=== PATIENT | female | born 1975 | race African-American/Black ===

== ENCOUNTER 2018-10-06 02:52 | Emergency (ER) | payer BC, SELFPAY ==
[2018-10-06] MEDS ORDERED: FENTANYL CITR 100 MCG/2 ML ONE ×2 (03:33→06:25)
[2018-10-06 03:45] LABS: Absolute Lymphocytes (CBC) 1.7 K/uL (0.7-4.9); Basophils % 0.3 % (0-1.3); Hematocrit 38.6 % (36.0-45.0); Lymphocytes % 16.4 % (15.3-44.8); MPV 8.9 fL (7.6-11.3); RBC Red Blood Cell Count 4.62 M/uL (3.86-4.86)
[2018-10-06 03:55] LABS: Protime INR 1.03
[2018-10-06 04:07] LABS: ALT/SGPT 22 U/L (12-78); AST/SGOT 14 U/L (15-37); Albumin 3.7 g/dL (3.4-5.0); Alkaline Phosphatase 119 U/L (45-117); BUN Blood Urea Nitrogen 14 mg/dL (7-18); Bicarbonate 26 mmol/L (21-32); Bilirubin Direct 0.2 mg/dL (0-0.2); Glucose Level 94 mg/dL (74-106); Magnesium 2.1 mg/dL (1.8-2.4); NT PRO-BNP 90 pg/mL (<125); Potassium 3.7 mmol/L (3.5-5.1); Protein, Total 7.5 g/dL (6.4-8.2); Sodium Level 141 mmol/L (136-145); Troponin (Emerg Dept Use Only) < 0.02 ng/mL (0.0-0.045)
--- NOTE | 2018-10-06 05:16 | ER ---
Nurse's Notes [facility] Name: Stephanie Verma Age: 43 yrs Sex: Female : 1975 Arrival Date: 10/06/2018 Time: 02:57 Bed 6 Private MD: Diagnosis: Paraplegia, incomplete;Chest pain, unspecified Presentation: 10/06 03:00 Presenting complaint: Patient states: I have chest pain that started 45 minutes prior jb4 to arrival that radiates to the left neck and arm. I was most concerned about my left leg feeling heavy and numb. I was normal when I went to bed at 2200. 03:00 Transition of care: patient was not received from another setting of care. Onset of jb4 symptoms was October 06, 2018. Risk Assessment: Do you want to hurt yourself or someone else? Patient reports no desire to harm self or others. Initial Sepsis Screen: Does the patient meet any 2 criteria? No. Patient's initial sepsis screen is negative. Does the patient have a suspected source of infection? No. Patient's initial sepsis screen is negative. Care prior to arrival: None. 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 - Social history:: Smoking status: Patient/guardian denies using tobacco, Patient/guardian denies using alcohol. - Ebola Screening: : No symptoms or risks identified at this time. Screenin:13 Abuse screen: Denies threats or abuse. Nutritional screening: No deficits noted. jb4 Tuberculosis screening: No symptoms or risk factors identified. Fall Risk IV access (20 points). Gait- Impaired (20 pts.). Total Danielson Fall Scale indicates Low Risk Score (25-44 pts). Assessment: 03:00 General: Appears in no apparent distress. uncomfortable, Behavior is cooperative, jb4 anxious, Pt reports "a weird dull sensation" below the left knee. Is unable to hold up her left leg. sensation is impaired and lessened from the left knee to the bottom of the left foot.. 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 Neuro: Level of Consciousness is awake, alert, obeys commands, Oriented to person, place, time, situation, Weakness in left leg(s) foot/feet Speech is normal, Facial symmetry appears normal, Pupils are PERRLA, Numbness in left knee, left rajan, anterior aspect of left ankle and dorsum of left foot. Cardiovascular: Capillary refill < 3 seconds in bilateral toes Patient's skin is warm and dry. Pulses are 3+ in right dorsalis pedis artery and left dorsalis pedis artery Rhythm is sinus bradycardia. Respiratory: Airway is patent Respiratory effort is even, unlabored, Respiratory pattern is regular, symmetrical. GI: No deficits noted. No signs and/or symptoms were reported involving the gastrointestinal system. : No deficits noted. No signs and/or symptoms were reported regarding the genitourinary system. EENT: No deficits noted. No signs and/or symptoms were reported regarding the EENT system. Derm: Skin is intact, Skin is dry, Skin is normal, Skin temperature is warm No discoloration or coolness noted to the left leg. Musculoskeletal: Circulation, motion, and sensation intact. Range of motion: limited in left knee and left ankle. 04:18 Reassessment: Patient appears in no apparent distress at this time. Patient and/or jb4 family updated on plan of care and expected duration. Pain level reassessed. Patient is alert, oriented x 3, equal unlabored respirations, skin warm/dry/pink. Pt reports feeling more at ease and is able to move her left arm more easily with less pain. Still unable to move left leg. Left leg shows no resistance to gravity when lifted off the bed and immediately falls back down. Provider notified. 05:15 Reassessment: Patient appears in no apparent distress at this time. No changes from jb4 previously documented assessment. Patient and/or family updated on plan of care and expected duration. Pain level reassessed. Patient is alert, oriented x 3, equal unlabored respirations, skin warm/dry/pink. 05:51 Reassessment: Report called to ALBERT Yip at [facility]. jb4 06:05 Reassessment: Pt reports increase in chest pain, provider notified, see MAR for orders. jb4 06:27 Reassessment: Patient appears in no apparent distress at this time. Patient and/or jb4 family updated on plan of care and expected duration. Pain level reassessed. Patient is alert, oriented x 3, equal unlabored respirations, skin warm/dry/pink. Pt to CT. 07:17 Reassessment: pt is in CT at this time, unavailable for vs. tw2 07:24 Reassessment: Patient appears in no apparent distress at this time. Patient and/or tw2 family updated on plan of care and expected duration. Pain level reassessed. Patient is alert, oriented x 3, equal unlabored respirations, skin warm/dry/pink. pt back from CT at this time, pt states "im good" when asked how her pain was. 08:16 Reassessment: Patient appears in no apparent distress at this time. No changes from tw2 previously documented assessment. Patient and/or family updated on plan of care and expected duration. Pain level reassessed. Patient is alert, oriented x 3, equal unlabored respirations, skin warm/dry/pink. Vital Signs: 03:00 BP 160 / 93; Pulse 68; Resp 18; Temp 98.0(O); Pulse Ox 99% on R/A; Weight 112.49 kg jb4 (R); Height 5 ft. 5 in. (165.10 cm) (R); Pain 6/10; 03:35 BP 141 / 76; Pulse 61; Resp 18; Pulse Ox 100% on R/A; jb4 04:30 BP 142 / 87; Pulse 69; Resp 15; Pulse Ox 100% on R/A; jb4 05:29 BP 164 / 103; Pulse 70; Resp 15; Pulse Ox 100% on R/A; jb4 06:28 BP 151 / 89; Pulse 70; Resp 20; Pulse Ox 98% on R/A; jb4 07:24 BP 152 / 87; Pulse 56; Resp 16; Pulse Ox 100% on R/A; tw2 08:15 BP 156 / 82; Pulse 57; Resp 17; Pulse Ox 99% on R/A; tw2 03:00 Body Mass Index 41.27 (112.49 kg, 165.10 cm) jb4 ED Course: 02:57 Patient arrived in ED. ds1 02:57 Fortino Francis, RN is Primary Nurse. jb4 02:58 Everette Jimenez MD is Attending Physician. gs 03:00 Arm band placed on right wrist. EKG completed in triage. Results shown to MD. jb4 03:11 Triage completed. jb4 03:13 Patient has correct armband on for positive identification. Bed in low position. Call 4 light in reach. Side rails up X 1. color television console monitor on. Pulse ox on. NIBP on. 03:13 Patient maintains SpO2 saturation greater than 95% on room air. jb4 03:20 Initial lab(s) drawn, by me, sent to lab. Inserted saline lock: 20 gauge in right jb4 forearm, using aseptic technique. Blood collected. 03:39 X-ray completed. Portable x-ray completed in exam room. Patient tolerated procedure kw well. 03:43 XRAY Chest (1 view) In Process Unspecified. EDMS 04:47 Basic Metabolic Panel Sent. jb4 04:47 CBC with Diff Sent. jb4 04:47 LFT's Sent. jb4 04:47 Magnesium Sent. jb4 06:34 US Extremity Venous Unilateral Ltd In Process Unspecified. EDMS 06:39 CT Chest Wo Con In Process Unspecified. EDMS 06:43 CT completed. Patient tolerated procedure well. Patient moved to CT via stretcher. Patient taken to ultrasound. 07:02 Primary Nurse role handed off by Fortino Francis, ALBERT tw2 07:02 Sanna Mariee, ALBERT is Primary Nurse. tw2 08:16 No provider procedures requiring assistance completed. Patient transferred, IV remains tw2 in place. Administered Medications: 03:37 Drug: fentaNYL (PF) 50 mcg {Note: Rass score of 0, B/p prior to administration 141/76.} jb4 Route: IVP; Site: right forearm; 04:00 Follow up: Response: No adverse reaction; Pain is decreased; RASS: Alert and Calm (0) jb4 06:19 Drug: Zofran 4 mg Route: IVP; Site: right forearm; jb4 07:26 Follow up: Response: No adverse reaction tw2 06:26 Drug: fentaNYL (PF) 25 mcg {Note: Rass score prior to administration 0, b/p 151/89 jb4 prior to administration..} Route: IVP; Site: right forearm; 07:25 Follow up: Response: No adverse reaction; Pain is decreased; RASS: Alert and Calm (0) tw2 Outcome: 05:15 ER care complete, transfer ordered by . brad 08:16 Transferred by ground EMS to [facility]. tw2 08:16 Condition: stable 08:16 Instructed on the need for transfer. 08:17 Patient left the ED. tw2 Signatures: Dispatcher [employer] EDMS KrishBarber byrne Demi ds1 Ernestina Falcon Tara, RN RN tw2 Fortino Francis RN RN jb4 Everette Jimenez MD MD gs Corrections: (The following items were deleted from the chart) 04:20 04:18 Reassessment: Patient appears in no apparent distress at this time. Patient jb4 and/or family updated on plan of care and expected duration. Pain level reassessed. Patient is alert, oriented x 3, equal unlabored respirations, skin warm/dry/pink. Pt reports feeling more at ease and is able to move her left arm more easily with less pain. Still unable to move left leg. Left leg shows no resistance to gravity when lifted off the bed and immediately falls back down. jb4 04:37 03:00 Derm: Skin is intact, Skin is dry, Skin is normal, Skin temperature is warm jb4 jb4
--- NOTE | 2018-10-06 05:16 | EDPHYS ---
Physician Documentation [facility] Name: Stephanie Verma Age: 43 yrs Sex: Female : 1975 Arrival Date: 10/06/2018 Time: 02:57 Bed 6 Private MD: ED Physician Everette Jimenez HPI: 10/06 05:01 This 43 yrs old Black Female presents to ER via Wheelchair with complaints of Chest gs Pain. 05:01 The patient or guardian reports chest pain that is located primarily in the anterior gs chest wall. Onset: gradually. The pain does not radiate. Associated signs and symptoms: Pertinent negatives: diaphoresis, shortness of breath, syncope, vomiting. The chest pain is described as sharp. Duration: The patient or guardian reports a single episode, that is still ongoing. Modifying factors: the symptoms are aggravated by movement, twisting torso, LIFTING LEFT ARM. Severity of pain: At its worst the pain was severe in the emergency department the pain is unchanged. The patient has experienced similar episodes in the past, a few times. 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 - Social history:: Smoking status: Patient/guardian denies using tobacco, Patient/guardian denies using alcohol. - Ebola Screening: : No symptoms or risks identified at this time. ROS: 05:01 Neuro: Positive for weakness, LEFT LEG, SAYS PAIN FROM KNEE DOWN, LEG FEELS ASLEEP.. gs 05:01 All other systems are negative. Exam: 05:01 Head/Face: Normocephalic, atraumatic. Eyes: Pupils equal round and reactive to light, gs extra-ocular motions intact. Lids and lashes normal. Conjunctiva and sclera are non-icteric and not injected. Cornea within normal limits. Periorbital areas with no swelling, redness, or edema. ENT: Nares patent. No nasal discharge, no septal abnormalities noted. Tympanic membranes are normal and external auditory canals are clear. Oropharynx with no redness, swelling, or masses, exudates, or evidence of obstruction, uvula midline. Mucous membranes moist. 05:01 Constitutional: The patient appears alert, awake. 05:06 Neck: Trachea midline, no thyromegaly or masses palpated, and no cervical gs lymphadenopathy. Supple, full range of motion without nuchal rigidity, or vertebral point tenderness. No Meningismus. Chest/axilla: Normal chest wall appearance and motion. Nontender with no deformity. No lesions are appreciated. Cardiovascular: Regular rate and rhythm with a normal S1 and S2. No gallops, murmurs, or rubs. Normal PMI, no JVD. No pulse deficits. Respiratory: Lungs have equal breath sounds bilaterally, clear to auscultation and percussion. No rales, rhonchi or wheezes noted. No increased work of breathing, no retractions or nasal flaring. Abdomen/GI: Soft, non-tender, with normal bowel sounds. No distension or tympany. No guarding or rebound. No evidence of tenderness throughout. Back: No spinal tenderness. No costovertebral tenderness. Full range of motion. Skin: Warm, dry with normal turgor. Normal color with no rashes, no lesions, and no evidence of cellulitis. 05:06 Musculoskeletal/extremity: ROM: limited active range of motion, limited passive range of motion, in the left leg, limited active range of motion due to pain, limited passive range of motion due to pain, in the left arm, Pulses: are normal with no appreciated deficits, the left rajan and dorsum of left foot numbness, decreased sensation. 05:06 Neuro: Orientation: is normal, Mentation: is normal, Memory: is normal, Cranial nerves: CN II- XII are normal as tested, Cerebellar function: normal finger to nose testing, Motor: strength is 5/5 in the right arm, left arm and right leg, Strength is 1/5 in the left leg, Deep tendon reflexes are normal. 05:46 ECG was reviewed by the Attending Physician. Vital Signs: 03:00 BP 160 / 93; Pulse 68; Resp 18; Temp 98.0(O); Pulse Ox 99% on R/A; Weight 112.49 kg jb4 (R); Height 5 ft. 5 in. (165.10 cm) (R); Pain 6/10; 03:35 BP 141 / 76; Pulse 61; Resp 18; Pulse Ox 100% on R/A; jb4 04:30 BP 142 / 87; Pulse 69; Resp 15; Pulse Ox 100% on R/A; jb4 05:29 BP 164 / 103; Pulse 70; Resp 15; Pulse Ox 100% on R/A; jb4 06:28 BP 151 / 89; Pulse 70; Resp 20; Pulse Ox 98% on R/A; jb4 07:24 BP 152 / 87; Pulse 56; Resp 16; Pulse Ox 100% on R/A; tw2 08:15 BP 156 / 82; Pulse 57; Resp 17; Pulse Ox 99% on R/A; tw2 03:00 Body Mass Index 41.27 (112.49 kg, 165.10 cm) jb4 MDM: 03:16 Patient medically screened. 05:13 Differential diagnosis: coronary artery disease chest wall pain, DVT, HERNIATED DISC, gs MYELOPATHY. Data reviewed: vital signs, nurses notes, old medical records, lab test result(s), EKG, radiologic studies. ED course: WILL TRANSFER CV WORKUP NEGATIVE STILL CANNOT MOVE LEG. 05:16 Differential diagnosis:. 10/06 03:17 Order name: Basic Metabolic Panel 10/06 03:17 Order name: CBC with Diff 10/06 03:17 Order name: LFT's 10/06 03:17 Order name: Magnesium 10/06 03:17 Order name: NT PRO-BNP; Complete Time: 04:48 10/06 03:17 Order name: PT-INR; Complete Time: 04:48 10/06 03:17 Order name: Troponin (emerg Dept Use Only); Complete Time: 04:48 10/06 03:17 Order name: XRAY Chest (1 view) 10/06 03:21 Order name: Basic Metabolic Panel; Complete Time: 04:48 EDMS 10/06 03:21 Order name: CBC with Automated Diff; Complete Time: 04:48 EDMS 10/06 03:21 Order name: Liver (Hepatic) Function; Complete Time: 04:48 EDMS 10/06 03:21 Order name: Magnesium; Complete Time: 04:48 EDMS 10/06 05:05 Order name: US Extremity Venous Unilateral Ltd 10/06 06:03 Order name: Troponin (emerg Dept Use Only) 10/06 03:17 Order name: EKG; Complete Time: 03:22 10/06 03:17 Order name: Cardiac monitoring; Complete Time: 03:28 10/06 03:17 Order name: EKG - Nurse/Tech; Complete Time: 03:28 10/06 03:17 Order name: IV Saline Lock; Complete Time: 03:28 10/06 03:17 Order name: Labs collected and sent; Complete Time: 03:28 10/06 03:17 Order name: O2 Per Protocol; Complete Time: 03:28 10/06 03:17 Order name: O2 Sat Monitoring; Complete Time: 03:28 10/06 06:03 Order name: EKG - Nurse/Tech; Complete Time: 06:13 10/06 06:03 Order name: CT Chest Wo Con gs EC:46 Rate is 58 beats/min. Rhythm is regular. AR interval is normal. QRS interval is normal. gs No Q waves. T waves are Normal. No ST changes noted. Clinical impression: Normal ECG and Sinus bradycardia. Interpreted by me. Administered Medications: 03:37 Drug: fentaNYL (PF) 50 mcg {Note: Rass score of 0, B/p prior to administration 141/76.} jb4 Route: IVP; Site: right forearm; 04:00 Follow up: Response: No adverse reaction; Pain is decreased; RASS: Alert and Calm (0) jb4 06:19 Drug: Zofran 4 mg Route: IVP; Site: right forearm; jb4 07:26 Follow up: Response: No adverse reaction tw2 06:26 Drug: fentaNYL (PF) 25 mcg {Note: Rass score prior to administration 0, b/p 151/89 jb4 prior to administration..} Route: IVP; Site: right forearm; 07:25 Follow up: Response: No adverse reaction; Pain is decreased; RASS: Alert and Calm (0) tw2 Disposition: 10/06/18 05:[address] [facility]. Diagnosis are Paraplegia, incomplete, Chest pain, unspecified. - Reason for transfer: Higher level of care. - Accepting physician is AUGUSTIN. - Condition is Stable. - Problem is new. - Symptoms are unchanged. Signatures: Dispatcher [employer] EDLorraine Rodriguez, RN RN ak1 Sanna Mariee RN RN tw2 Fortino Francis, RN RN jb4 Everette Jimenez MD MD gs Corrections: (The following items were deleted from the chart) 05:15 05:15 10/06/2018 05:[address] [facility]. Diagnosis is gs Paraplegia, incomplete. Reason for transfer: Higher level of care. Accepting physician is [facility]. Condition is Stable. Problem is new. Symptoms are unchanged. 08:17 05:15 10/06/2018 05:[address] [facility]. Diagnosis is tw2 Paraplegia, incomplete; Chest pain, unspecified. Reason for transfer: Higher level of care. Accepting physician is [facility]. Condition is Stable. Problem is new. Symptoms are unchanged.
[2018-10-06] MEDS ORDERED: ONDANSETRON 4 MG/2 ML VIAL ONE (06:14)
--- NOTE | 2018-10-06 07:36 | EKG ---
Test Date: 2018-10-06 Test Time: 03:06:28 Summer Analyst: HARRIS MEASUREMENT RESULTS: Intervals: Rate: 58 VA: 168 QRSD: 92 QT: 426 QTc: 418 Secor: P: 51 VA: 168 QRS: 43 T: 36 INTERPRETIVE STATEMENTS: Sinus bradycardia Otherwise normal ECG Compared to ECG 05/01/2015 01:17:30 No significant changes Electronically Signed On 10-06-18 07:35:21 CDT by Felix Hale
--- NOTE | 2018-10-06 08:20 | RAD REPORT ---
EXAM DESCRIPTION: RAD - Chest Single View - 10/06/2018 3:40 am CLINICAL HISTORY: CHEST PAIN Chest pain. COMPARISON: CHEST SINGLE VIEW dated 04/30/2015; CHEST SINGLE VIEW dated 08/12/2014 FINDINGS: Portable technique limits examination quality. The lungs are grossly clear. The heart is upper limit of normal in size. No displaced fractures. IMPRESSION: Mildly prominent cardiac silhouette.
--- NOTE | 2018-10-06 08:33 | RAD REPORT ---
EXAM DESCRIPTION: CT - Thorax Wo Con CLINICAL HISTORY: Chest pain PAIN COMPARISON: CTANGIO CHEST FOR PE dated 05/01/2015 FINDINGS: The lungs are clear. No pleural thickening or pleural effusion. No pneumothorax. No axillary, mediastinal or hilar adenopathy. No concerning bony finding. Postsurgical changes are seen about the stomach. Cholecystectomy clips. All CT scans are performed using dose optimization technique as appropriate and may include automated exposure control or mA/KV adjustment according to patient size. IMPRESSION: No acute intrathoracic abnormality.
--- NOTE | 2018-10-06 08:34 | RAD REPORT ---
EXAM DESCRIPTION: US - Extremity Venous Uni Ltd - 10/06/2018 7:17 am CLINICAL HISTORY: PAIN Leg swelling and edema. COMPARISON: EXT VENOUS W COMPRESSION MATEUS dated 08/12/2014 FINDINGS: Left lower extremity venous system was interrogated with Doppler technique. Normal flow, c ompressibility and augmentation was noted. There is no DVT present. IMPRESSION: No evidence of left lower extremity deep venous thrombosis.
--- NOTE | 2018-10-06 10:40 | EKG ---
Test Date: 2018-10-06 Test Time: 06:11:57 Yacht Hand: JOE MEASUREMENT RESULTS: Intervals: Rate: 62 OR: 186 QRSD: 92 QT: 442 QTc: 448 [place]: P: 36 OR: 186 QRS: 58 T: 34 INTERPRETIVE STATEMENTS: Normal sinus rhythm Normal ECG Compared to ECG 10/06/2018 03:06:28 Sinus bradycardia no longer present Electronically Signed On 10-06-18 10:39:24 CDT by Felix Hale
== END 2018-10-06 08:17 | disposition short-term general hospital (02) ==
LOC: ER 02:52
DX: G82.22 Paraplegia, incomplete (principal); R07.9 Chest pain, unspecified; Z91.041 Radiographic dye allergy status; Z86.718 Personal history of other venous thrombosis and embolism
CPT/HCPCS: 36415; 71045; 71250; 80048; 80076; 83735; 83880; 84484; 85025; 85610; 93005; 93971; 96374; 96375; 99285; J2405; J3010

== ENCOUNTER 2019-12-04 17:42 | Emergency (ER) | payer OTHER, SELFPAY ==
--- OUTSIDE RECORDS SUMMARY | 2019-12-04 17:44 | XMS REPORT | Clinical Summary ---
:1975 Author Organization [facility] [employer] [facility] Address [address] [place] [address] Care Team Providers Name Role Phone Donald Primary Care Provider Allergies Active Allergy Reactions Severity Noted Date Comments Iodine And Iodide Containing Hives 10/07/2018 Patients if she is pre Products medicated she c an tolerate iodine injectio ns Medications Medication Sig Dispensed Refills Start Date End Date Status aspirin 81 MG EC Take 1 tablet 30 tablet 3 10/10/2018 10/10/19 20 tablet (81 mg total) by mouth daily. pantoprazole Take 1 tablet 30 tablet 11 10/09/2018 10/09/2019 E xpired (PROTONIX) 20 MG (20 mg total) tablet by mouth daily. Active Problems Problem Noted Date Weakness 10/07/2018 Chest pain 10/06/2018 Weakness of left lower extremity 10/06/2018 Social History Tobacco Use Types Packs/Day Years Used Date Never Smoker Smokeless Tobacco: Never Used Alcohol Use Drinks/Week oz/Week Comments No Alcohol Habits Answer Date Recorded How often do you have a drink containing alcohol? Never 10/06/2018 How many drinks containing alcohol do you have on a typical Not asked day when you are drinking? How often do you have six or more drinks on one occasion? No t asked Sex Assigned at Date Recorded Not on file Job Start Date Occupation Industry Not on file Not on file Not on file Travel History Travel Start Travel End No recent travel history available. Last Filed Vital Signs Not on file Plan of Treatment Not on file Results Not on fileafter 12/03/2018 Advance Directives For more information, please contact:[facility] [place], [place] [phone] Code Status Date Activated Date Inactivated Comments Full Code 10/06/2018 10:00 AM 10/10/2018 12:04 AM This code status was determined by: Patient Name Relationship Healthcare Agent Relationship Ph one Low Elder Significant Other First alternate healthcare ent [phone]
--- OUTSIDE RECORDS SUMMARY | 2019-12-04 17:45 | XMS REPORT | Continuity of Care Document ---
:1975 Author Organization [facility] Ivel Information [place] Care Team Providers Name Role Phone [facility] Kai Information Exchange Unavailable Un available Problems Problem Status Onset Classification Date Comments Sourc e Date Reported OTHER Active 08/26/19 [place] [id number] [place] Other chest pain 08/23/19 08/25/2017 [place] [id number] [place] CHEST PAIN Active 08/23/19 [place] [id number] [place],[facility] Laparoscopic Active 09/29/19 Problem 08/29/2017 cholecystectomy 11 [facility], with [facility] cholangiography [facility] (procedure) Esophagogastrostom Active 02/25/19 Problem 08/29/2017 y, antesternal or 04 [place], antethoracic Memoria l (procedure) [facility] Multiple myeloma 08/29/2017 [place] not having achieved remission Essential 08/29/2017 [place] (primary) hypertension Neoplasm related 08/29/2017 [place] pain (acute) (chronic) Abdominal pain Active Problem 08/29/2017 (finding) [place],M H [facility] CHEST PAIN, Active [facility] UNSPECIFIED [place] OTHER SPECIFIED Active Tonio rial DISORDERS OF WHITE H ermann BLOOD OTHER FORMS OF Active Memor ial STOMATITIS Ivel OTHER SPECIFIED Active Tonio rial ABNORMAL Kai IMMUNOLOGICAL F MULTIPLE MYELOMA Active Mem orial NOT HAVING Kai ACHIEVED REM ESSENTIAL Active [facility] (PRIMARY) Kai HYPERTENSION NEOPLASM RELATED Active Mem orial PAIN (ACUTE) [place] (CHRONIC) Medications Medication Details Route Status Patient Ordering Order Source Instructions Provider Date atorvastatin Notes: (Same Inactive As: Lipitor) 2017 [place] Acetaminophen 1 - 2 tab, PO, No Longer H 300 MG / Q4H, PRN Pain, Active 2017 [place] Codeine X 2 day, # 20 Phosphate 30 MG tab, 0 Oral Tablet Refill(s) [Tylenol with Codeine #3] Aspirin Notes: Do not Inactive crush or chew. 2017 [place] (Same As: Ecotrin) Enoxaparin Notes: (Same No Longer as: Lovenox) Active 2017 [place] Acetaminophen Notes: Do not No Longer exceed 4 Active 2017 [place] gm/day. (Same as: Tylenol) Morphine Notes: No Longer Preservative Active 2017 [place] free. (Same as: Morphine Sulfate-PF) Ondansetron Notes: (Same No Longer as: Zofran) Active 2017 [place] MEDICATION WASTE Product Size: 4 mg Product Wasted: ___ mg Naproxen 500 MG 500 mg = 1 Active Oral Tablet tab, PO, BID, 2017 Mem[place] al [Naprosyn] PRN for pain, [place] X 7 day, # 14 tab, 0 Refill(s) ibuprofen 800 800 mg = 1 Inactive mg oral tablet tab, PO, Q8H, 2017 Mem orial PRN Pain, Take [place] with food, X 5 day, # 15 tab, 0 Refill(s) Benadryl 50 mg, Route: Inactive IVP, ONCE, 2017 [facility] Dosing Weight [facility] 95.455, kg, Priority: STAT, Start date: 08/22/17 12:59:00 CDT, Stop date: 08/22/17 12:59:00 CDT GI cocktail 30 mL, Route: Inactive PO, Dosing 2017 [facility] Weight 95.455, [place] kg, ONCE, STAT, Start date: 08/22/17 11:24:00 CDT, Stop date: 08/22/17 11:24:00 CDT Ketorolac 4 days Inactive MEDICATION 2017 [facility] WASTE [facility] Product Size: 30 mg Product Wasted: ___ mg Saline Flush Notes: (Same Inactive 0.9% as: BD 2017 [facility] Posiflush) [facility] Allergies, Adverse Reactions, Alerts Substance Category Reaction Severity Reaction Status Date Comments S ource type Reported iodine Assertion Drug Active allergy [place] Immunizations No Data Provided for This Section Results Order Name Results Value Reference Date Interpretation Comments Latisha rce Range CARDIAC Troponin-I <0.02 0.00 - 08/26 ENZYMES 0.40 /2017 [place] CARDIAC Total CK 73 12 - 191 08/26 ENZYMES /2017 [place] CHEM PANEL Magnesium 1.9 1.8 - 2.4 08/26 MH Lvl [place] ELECTROLYTES AGAP 13.0 10.0 - 07/ MH 20.0 /2018 [place] ELECTROLYTES Globulin 3.3 2.7 - 4.2 08/26 [place] ELECTROLYTES B/C Ratio 17 6 - 25 08/26 [place] ELECTROLYTES A/G Ratio 0.9 0.7 - 1.6 08/26 [place] ELECTROLYTES eGFR 123 08/26 Result Comment: The [place] eGFR is calculated using the CKD-EPI formula. In most young, healthy individuals the eGFR will be >90 mL/min/1.73m2 . The eGFR declines with age. An eGFR of 60-89 may be normal in some populations, particularly the elderly, for whom the CKD-EPI formula has not been extensively validated. Use of the eGFR is not recommended in the following populations:< br/>
Meagan viduals with unstable creatinine concentration s, including patients and those with serious co-morbid conditions.<b r/>
Patie nts with extremes in muscle mass or diet.

The data above are obtained from the National Kidney Disease Education Program (NKDEP) which additionally recommends that when the eGFR is used in patients with extremes of body mass index for purposes of drug dosing, the eGFR should be multiplied by the estimated BMI. ELECTROLYTES ALT 16 0 - 65 08/26 [place] ELECTROLYTES AST 11 0 - 37 08/26 [place] ELECTROLYTES Bili Total 0.8 0.2 - 1.3 08/26 [place] ELECTROLYTES Alk Phos 99 39 - 136 08/26 [place] ELECTROLYTES Glucose Lvl 85 70 - 99 08/26 [place] ELECTROLYTES Creatinine 0.71 0.50 - 07 MH Lvl 1.40 /2018 [place] ELECTROLYTES Potassium 4.0 3.5 - 5.1 08/26 MH Lvl [place] ELECTROLYTES Total 6.4 6.4 - 8.4 08/26 MH Protein [place] ELECTROLYTES Albumin Lvl 3.1 3.5 - 5.0 08/26 [place] ELECTROLYTES CO2 26 24 - 32 08/26 [place] ELECTROLYTES Calcium Lvl 8.4 8.5 - 10.5 08/26 [place] ELECTROLYTES Chloride Lvl 108 95 - 109 07/ /2017 [place] ELECTROLYTES Sodium Lvl 143 135 - 145 07/ /2017 [place] ELECTROLYTES BUN 12 7 - 22 07/ /2017 [place] HEMATOLOGY Eosinophils 0.2 0.0 - 0.5 07/ MH # /2017 [place] HEMATOLOGY Monocytes # 0.5 0.0 - 0.8 07/ /2017 [place] HEMATOLOGY Segs 69.7 45.0 - 07/ MH 75.0 /2017 [place] HEMATOLOGY Lymphocytes 22.4 20.0 - 07/ MH 40.0 /2017 [place] HEMATOLOGY Monocytes 5.6 2.0 - 12.0 07/ /2017 [place] HEMATOLOGY Segs-Bands # 6.6 1.5 - 8.1 08/26 /2017 [place] HEMATOLOGY Eosinophils 1.8 0.0 - 4.0 08/26 /2017 [place] HEMATOLOGY Lymphocytes 2.1 1.0 - 5.5 08/26 MH # /2017 [place] HEMATOLOGY Basophils 0.5 0.0 - 1.0 08/26 /2017 [place] HEMATOLOGY PT 13.3 12.0 - 07 MH 14.7 [place] HEMATOLOGY PTT 37.2 22.9 - 08/26 MH 35.8 /2017 [place] HEMATOLOGY INR 1.01 0.85 - 07 MH 1.17 [place] HEMATOLOGY MPV 8.3 7.4 - 10.4 08/26 /2017 [place] HEMATOLOGY Hct 38.7 36.0 - 07 MH 48.0 [place] HEMATOLOGY WBC 9.5 3.7 - 10.4 08/26 [place] HEMATOLOGY RBC 4.55 4.20 - 07 MH 5.40 /2017 [place] HEMATOLOGY Hgb 12.5 12.0 - 07 MH 16.0 [place] HEMATOLOGY Platelet 216 133 - 450 07/ [place] HEMATOLOGY MCH 27.4 27.0 - 07 MH 31.0 [place] HEMATOLOGY RDW 13.3 11.5 - 07 MH 14.5 [place] HEMATOLOGY MCHC 32.3 32.0 - 07 MH 36.0 [place] HEMATOLOGY MCV 84.9 80.0 - 07 MH 98.0 [place] CARDIAC CK MB 0.7 0.5 - 3.6 07 ENZYMES /2017 [place] CARDIAC CK MB Index 0.8 0.0 - 2.5 08/26 ENZYMES /2017 [place] CARDIAC Troponin-I <0.02 0.00 - 08/26 ENZYMES 0. [place] CARDIAC Total CK 87 12 - 191 08/26 ENZYMES /2017 [place] HEMATOLOGY Platelet 146 133 - 450 08/22 [facility] HEMATOLOGY MPV 9.8 7.4 - 10.4 08/22 MH /2017 [facility] HEMATOLOGY MCH 27.7 27.0 - 08/22 MH 31.0 [facility] HEMATOLOGY RDW 14.1 11.5 - 08/22 MH 14. [facility] HEMATOLOGY MCHC 32.5 32.0 - 08/22 MH 36.0 [facility] HEMATOLOGY RBC 4.83 4.20 - 08/22 MH 5.40 [facility] HEMATOLOGY Hgb 13.4 12.0 - 08/22 MH 16.0 [facility] HEMATOLOGY WBC 11.2 3.7 - 10.4 08/22 [facility] HEMATOLOGY MCV 85.2 80.0 - 08/22 MH 98.0 [facility] HEMATOLOGY Hct 41.2 36.0 - 08/22 MH 48.0 [facility] HEMATOLOGY RBC Morph Normal 08/22 (08/22/17 12:25 PM) [facility] HEMATOLOGY Segs 81.2 45.0 - 08/22 MH 75.0 [facility] HEMATOLOGY Plt Morph Normal 08/22 (08/22/17 12:25 PM) /2017 [facility] HEMATOLOGY Eosinophils 0.3 0.0 - 4.0 08/22 [facility] HEMATOLOGY Lymphocytes 13.4 20.0 - 08/22 MH 40.0 [facility] HEMATOLOGY Monocytes 4.8 2.0 - 12.0 08/22 [facility] HEMATOLOGY Basophils 0.3 0.0 - 1.0 08/22 [facility] HEMATOLOGY Lymphocytes 1.5 1.0 - 5.5 08/22 MH # /2017 [facility] HEMATOLOGY Segs-Bands # 9.1 1.5 - 8.1 08/22 [facility] HEMATOLOGY Monocytes # 0.5 0.0 - 0.8 08/22 [facility] CARDIAC CK MB Index 0.5 0.0 - 2.5 08/22 ENZYMES /2017 [facility] CARDIAC Total CK 176 12 - 191 08/22 ENZYMES [facility] CARDIAC CK MB 0.9 0.5 - 3.6 08/22 ENZYMES [facility] CARDIAC Troponin-I <0.02 0.00 - 08/22 ENZYMES 0.40 [facility] ELECTROLYTES Sodium Lvl 140 135 - 145 08/22 [facility] ELECTROLYTES Potassium 5.1 3.5 - 5.1 08/22 MH Lvl /2017 [facility] ELECTROLYTES Chloride Lvl 108 95 - 109 08/22 [facility] ELECTROLYTES Calcium Lvl 8.6 8.5 - 10.5 08/22 [facility] ELECTROLYTES Albumin Lvl 3.4 3.5 - 5.0 08/22 [facility] ELECTROLYTES A/G Ratio 0.9 0.7 - 1.6 08/22 [facility] ELECTROLYTES eGFR 127 08/22 [facility] Comment: The [facility] eGFR is [place] calculated using the CKD-EPI formula. In most young, healthy individuals the eGFR will be >90 mL/min/1.73m2 . The eGFR declines with age. An eGFR of 60-89 may be normal in some populations, particularly the elderly, for whom the CKD-EPI formula has not been extensively validated. Use of the eGFR is not recommended in the following populations:< br/>
Meagan viduals with unstable creatinine concentration s, including patients and those with serious co-morbid conditions.<b r/>
Patie nts with extremes in muscle mass or diet.

The data above are obtained from the National Kidney Disease Education Program (NKDEP) which additionally recommends that when the eGFR is used in patients with extremes of body mass index for purposes of drug dosing, the eGFR should be multiplied by the estimated BMI. ELECTROLYTES Total 7.3 6.4 - 8.4 08/22 Protein [facility] ELECTROLYTES Alk Phos 107 39 - 136 08/22 [facility] ELECTROLYTES AST 44 0 - 37 08/22 [facility] ELECTROLYTES ALT 22 0 - 65 08/22 [facility] ELECTROLYTES CO2 24 24 - 32 08/22 [facility] ELECTROLYTES BUN 7 7 - 22 08/22 [facility] ELECTROLYTES Creatinine 0.67 0.50 - 08/22 Lvl 1.40 [facility] ELECTROLYTES Glucose Lvl 89 70 - 99 08/22 [facility] ELECTROLYTES Globulin 3.9 2.7 - 4.2 08/22 [facility] ELECTROLYTES B/C Ratio 10 6 - 25 08/22 [facility] ELECTROLYTES Bili Total 1.1 0.2 - 1.3 08/22 [facility] ELECTROLYTES AGAP 13.1 10.0 - 08/22 20.0 [facility] Pathology Reports No Data Provided for This Section Diagnostic Reports Report Value Date Source Chest w contrast CT HISTORY: - chest pain; pulmonary nodules 0 08/22/2017 [facility] TECHNIQUE: Contiguous axial CT images of the chest were obtained after the uneventful administration of intravenous contrast. Additionally, both coronal and sagittal reformats were also submitted for interpretation. DOSE: Total DLP 278 mGy/cm 100 mL of Omnipaque 300 This exam was performed acco rding to the departmental dose-optimization program which includes automated exposure control, adjustment of the mA and/or kV according to patient size, and/or use of iterative reconstruction technique. COMPARISON: Correlation is made to chest radiog raph obtained earlier today. FINDINGS: There is no focal consolidation, pleural effusion, or pneumothorax. No suspicious pulmonary nodule is identified. Findings on prior chest radiograph were likely artifactual in nature. The heart is normal in size without pericardial effusion. There is no pathologic by size criteria mediastinal, hilar, or axillary lymphadenopathy. Patient has undergone prior cholecystectomy and gastric surgery. The remainder of the partially visualized contents of the upper abdomen are grossly unremarkable. Minimal osseous degenerative changes are present. There is no suspicious lytic or blastic lesion. IMPRESSION: No evidence of acute cardiopulmonary disease. [id number] Chest 1view DX SINGLE VIEW CHEST X-RAY. 08/22/2017 10:58 AM CDT 08/22/2017 [facility] INDICATION: - chest pain TECHNIQUE: Single frontal view of the chest was performed. COMPARISON: None FINDINGS: 4 mm right upper l obe nodule. 1.5 cm right lower lobe nodule. No effusions. No pneumothorax. The lungs are relatively clear. The cardiomediastinal silhouette is stable. Osseous structures are unchanged. The visualized abdomen is unremarkable. IMPRESSION: Right upper and lower lobe p ulmonary nodules. Recommend further correlation with CT chest. Consultation Notes No Data Provided for This Section Discharge Summaries No Data Provided for This Section History and Physicals No Data Provided for This Section Vital Signs Vital Sign Value Date Comments Source Systolic (mm Hg) 121 08/26/2017 [facility] [place] Diastolic (mm Hg) 83 08/26/2017 [facility] [place] Respitory Rate 16 08/26/2017 [facility] [place] Heart Rate 62 08/26/2017 [facility] [place] Temperature Oral (F) 98.4 F 08/26/2017 [facility] [place] Systolic (mm Hg) 111 08/26/2017 [facility] [place] Diastolic (mm Hg) 65 08/26/2017 [facility] [place] Respitory Rate 16 08/26/2017 [facility] [place] Temperature Oral (F) 98.5 F 08/26/2017 [facility] [place] Heart Rate 57 08/26/2017 [facility] [place] Systolic (mm Hg) 117 08/26/2017 [facility] [place] Diastolic (mm Hg) 82 08/26/2017 [facility] [place] Respitory Rate 16 08/26/2017 [facility] [place] Heart Rate 57 08/26/2017 [facility] [place] Temperature Oral (F) 98.8 F 08/26/2017 [facility] [place] Temperature Oral (F) 98.3 F 08/22/2017 [facility] Heart Rate 61 08/22[facility] 18 08/22/2017 [facility] Systolic (mm Hg) 133 08/22/2017 [facility] Diastolic (mm Hg) 71 08/22/2017 [facility] Weight 95.455 08/22/2017 [facility] BMI Calculated 35.02 08/22/2017 [facility] Systolic (mm Hg) 129 08/22/2017 [facility] [place] Diastolic (mm Hg) 69 08/22/2017 [facility] Respitory Rate 18 08/22/2017 [facility] Height 165.1 cm 08/22/2017 [facility] Temperature Oral (F) 98.1 F 08/22/[address] [facility] Heart Rate 57 08/22/2017 [facility] Encounters Location Location Encounter Encounter Reason Attending ADM DC Stat us Source Details Type Number For Provider Date Date Visit [facility] Emergency [id number] [facility] 08[facility]22 [facility] [id number] [place] 08/26 08/26 Kai Tan /2017 [facility] Procedures Procedure Code Date Perfomer Comments Source Cholecystectomy [id number] [place] Gastric bypass [id number] [place] Hysterectomy [id number] [facility] Operation<sup>1</sup [id number] bowel P [place] > obstruction Assessment and Plan Assessment and Plan Date Source Extracted from:Title: General Admission H&P * 08/26/2017 [facility] Author: Sandip Shore MD Date: 08/25/17 Impression and Plan 42-year-old female, morbidly obese, yen sfer from outside emergency room for evaluation of acute chest pain. 1. Acute chest pain. To rule out acute coronary syndrome. Telemetry, aspirin, statin. Serial cardiac enzyme EKG. 2. Obesity, status post bariatric surgery. 3. DVT prophylaxis. Lovenox subcutaneous. Plan of Care No Data Provided for This Section Social History Social History Date Source Social History TypeResponse 08/26/2017 [facility] Smoking Status Never smoker; Previous treatment: None; Ready to change: No; Concerns about tobacco use in household: No; Exposure to Tobacco Smoke None; Cigarette Smoking Last 365 Days No; Reg Smoking Cessation Counse ling No; Tobacco use per day: 0; Number of years: 0; Total pack years: 0; Started at age: 2.0; Stopped at age: 2; entered on: 08/25/17 Social History TypeResponse 08/22/2017 [facility] Smoking Status Never smoker; Ready to change: No; Radha rns about tobacco use in household: No; Exposure to Tobacco Smoke None; Cigarette Smoking Last 365 Days No; Reg Smoking Cessation Counseling No entered on: 08/22/17 Family History No Data Provided for This Section Advance Directives No Data Provided for This Section Functional Status No Data Provided for This Section
--- OUTSIDE RECORDS SUMMARY | 2019-12-04 17:47 | XMS REPORT | Continuity of Care Document ---
:1975 Author Organization [facility] t Address [address] [place] [address] Care Team Providers Name Role Phone Donald Primary Care Physician ANDREAS Attending Clinician Unavailable Dominick Attending Clinician Shawn Beckford Attending Clinician ANDREAS Admitting Clinician Unavailable Dominick Admitting Clinician Problems Condition Condition Condition Status Onset Resolution Last Treating Co mments Source Name Details Category Date Date Treatment Clinician Date Weakness Weakness [facility] Chest pain Chest pain Disease Active [facility] Weakness Weakness Disease [facility] lower [facility] Medical extremity extremity 00 Cent er OTHER Diagnosis Active 2017-08-25 Mem oria 08-25 21:09:00 l OTHER 00:00: [place] 00 Active 08/25/2017 [facility] Kai CHEST PAIN Diagnosis Active 2018-07-15 Memoria 08-22 07:16:00 l CHEST 00:00: [place] PAIN 00 Active 08/22/2017 [facility] Problem Active 2017-08-29 M emoria ic 09-28 01:51:10 l cholecyste 00:00: Terry n ctomy with Laparoscop 00 cholangiog ic alnea cholecyste (procedure ctomy with ) cholangiog alena (procedure ) Active 09/28/2010 Problem 08/29/2017 [facility] Esophagoga Problem Active 2003-0 2017-08-29 M emoria strostomy, 1- 01:51:10 l antesterna 00:00: Terry n l or Esophagoga 00 antethorac strostomy, ic antesterna (procedure l or ) antethorac ic (procedure ) Active 02/25/2003 Problem 08/29/2017 [facility] Multiple Problem 2017-08-29 Mem oria myeloma 01:51:10 l not having Multiple He rmann achieved myeloma remission not having achieved remission 08/29/2017 [facility] Essential Problem 2017-08-29 Me moria (primary) 01:51:10 l hypertensi Terry n on Essential (primary) hypertensi on 08/29/2017 [facility] Neoplasm Problem 2017-08-29 Mem oria related 01:51:10 l pain Neoplasm Terry n (acute) related (chronic) pain (acute) (chronic) 08/29/2017 [facility] Abdominal Problem Active 2017-08-29 Me moria pain 01:51:10 l (finding) Kai Abdominal pain (finding) Active Problem 08/29/2017 [facility] Lo[facility] CHEST Diagnosis Active 2017-08-27 Mem oria PAIN, 07:53:00 l UNSPECIFIE CHEST Anali nn D PAIN, UNSPECIFIE D Active [facility] OTHER Diagnosis Active 2017-08-25 Mem oria SPECIFIED 21:09:00 l DISORDERS OTHER Terry n OF WHITE SPECIFIED BLOOD DISORDERS OF WHITE BLOOD Active [facility] OTHER Diagnosis Active 2017-08-27 Mem oria FORMS OF 07:53:00 l STOMATITIS OTHER Anali nn FORMS OF STOMATITIS Active [facility] OTHER Diagnosis Active 2017-08-27 Mem oria SPECIFIED 07:53:00 l ABNORMAL OTHER [place] IMMUNOLOGI SPECIFIED FRANCESCA F ABNORMAL IMMUNOLOGI FRANCESCA F [facility] MULTIPLE Diagnosis Active 2017-08-27 M emoria MYELOMA 07:53:00 l NOT HAVING MULTIPLE He rmann ACHIEVED MYELOMA REM NOT HAVING ACHIEVED REM Active [facility] ESSENTIAL Diagnosis Active 2017-08-27 Memoria (PRIMARY) 07:53:00 l HYPERTENSI Terry n ON ESSENTIAL (PRIMARY) HYPERTENSI ON Active [facility] NEOPLASM Diagnosis Active 2017-08-27 M emoria RELATED 07:53:00 l PAIN NEOPLASM Terry n (ACUTE) RELATED (CHRONIC) PAIN (ACUTE) (CHRONIC) Active [facility] Other Problem 2017-08-25 2017-08-25 M emoria chest pain 08-22 03:46:58 03:46:58 l Other 05:00: Kai chest pain 00 08/22/2017 08/25/2017 [facility] Allergies, Adverse Reactions, Alerts Allergy Allergy Status Severity Reaction(s) Onset Inactive Treating Comm ents Source Name Type Date Date Clinician Iodine Drug Active Hives Patients [facility] pre Medical Containi 00 medicated Paty hare she can Products tolerate iodine injection s iodine iodine Active Nelson Quinn Social History Social Habit Start Date Stop Date Quantity Comments Source History SDOH Alcohol [facility] - Std Drinks [facility] History SDOH Alcohol [facility] - Binge [facility] Sex Assigned At [facility] History SDOH Alcohol 2018-10-06 2018-10-[address] [facility] - Frequency 00:00:00 [facility]00 [facility] Smoking Status Start Date Stop Date Source Social History [facility] Medications Ordered Filled Start Stop Current Ordering Indication Dosage Frequency Signature Comments Components Source Medication Medication Date Date Medication? Clinician (SIG) Name Name aspirin 81 2020- No 81mg QD Take [address] [facility] [address] [facility] EC 8-16 08-15 tablet (81 [facility] - tablet 00:00: 23:59 mg total) Medic al 00 :00 by mouth Center daily. pantoprazol 2020- No 20mg QD Take [address] [facility] e 8-15 08-14 tablet (20 [facility] - (PROTONIX) 00:00: 23:59 mg total) M edical 20 MG 00 :00 by mouth Center tablet daily. atorvastati No Notes: Tonio donna n 08-27 (Same As: l 02:00: Lipitor) [place] 00 Acetaminoph No 1 - 2 tab, Memoria en 300 MG / 08-26 PO, Q4H, l Codeine 14:16: PRN Pain, Anali nn Phosphate 00 X 2 day, # 30 MG Oral 20 tab, 0 Tablet Refill(s) [Tylenol with Codeine #3] Aspirin No Notes: Do Memor ia 08-26 not crush l 14:00: or chew. (Same As: Ecotrin) Enoxaparin No Notes: Memor ia 08-26 (Same as: l 03:00: Lovenox) Acetaminoph No Notes: Do M emoria en 08-26 not exceed l 02:16: 4 gm/day. (Same as: Tylenol) Morphine No Notes: Memoria 08-26 Preservati l 02:16: ve free. (Same as: Morphine Sulfate-PF ) Ondansetron No Notes: Tonio donna 08-26 (Same as: l 02:16: Zofran) MEDICATION WASTE Product Size: 4 mg Product Wasted: ___ mg Naproxen Yes 500 mg = 1 Mem oria 500 MG Oral 6-28 tab, PO, l Tablet 19:05: BID, PRN Kai [Naprosyn] 00 for pain, X 7 day, # 14 tab, 0 Refill(s) ibuprofen No 800 mg = 1 Me moria 800 mg oral 6-28 tab, PO, l tablet 19:02: Q8H, PRN Kai 00 Pain, Take with food, X 5 day, # 15 tab, 0 Refill(s) Benadryl No 50 mg, Memoria 08-22 Route: l 17:59: IVP, ONCE, Dosing Weight 95.455, kg, Priority: STAT, Start date: 08/22/17 12:59:00 CDT, Stop date: 08/22/17 12:59:00 CDT GI cocktail No 30 mL, Tonio donna 08-22 Route: PO, l 16:24: Dosing Weight 95.455, kg, ONCE, STAT, Start date: 08/22/17 11:24:00 CDT, Stop date: 08/22/17 11:24:00 CDT Ketorolac No 4 days Memor ia 08-22 l 15:58: MEDICATION [place] 00 WASTE Product Size: 30 mg Product Wasted: ___ mg Saline No Notes: Memoria Flush 0.9% 08-22 (Same as: l 15:58: BD [place] 00 Posiflush) Vital Signs Vital Name Observation Time Observation Value Comments Source Systolic (mm Hg) 2017-08-26 14:38:00 Tonio rial [place] Diastolic (mm Hg) 2017-08-26 14:38:00 Mem orial [place] Respitory Rate 2017-08-26 14:38:00 Memori al [place] Heart Rate 2017-08-26 14:38:00 [facility] [place] Temperature Oral (F) 2017-08-26 14:38:00 98.4 F [facility] [place] Systolic (mm Hg) 2017-08-26 08:06:00 Tonio rial [place] Diastolic (mm Hg) 2017-08-26 08:06:00 Mem orial [place] Respitory Rate 2017-08-26 08:06:00 Memori al [place] Temperature Oral (F) 2017-08-26 08:06:00 98.5 F [facility] [place] Heart Rate 2017-08-26 08:06:00 [facility] [place] Systolic (mm Hg) 2017-08-26 05:16:00 Tonio rial [place] Diastolic (mm Hg) 2017-08-26 05:16:00 Mem orial [place] Respitory Rate 2017-08-26 05:16:00 Memori al [place] Heart Rate 2017-08-26 05:16:00 [facility] [place] Temperature Oral (F) 2017-08-26 05:16:00 98.8 F [facility] Temperature Oral (F) 2017-08-22 19:36:00 98.3 F [facility] [place] Heart Rate 2017-08-22 19:36:00 [facility] [place] Respitory Rate 2017-08-22 19:36:00 Memori al [place] Systolic (mm Hg) 2017-08-22 19:36:00 Tonio rial [place] Diastolic (mm Hg) 2017-08-22 19:36:00 Mem orial [place] Weight 2017-08-22 15:58:00 [facility] BMI Calculated 2017-08-22 15:58:00 Memori al [place] Systolic (mm Hg) 2017-08-22 15:58:00 Tonio rial [place] Diastolic (mm Hg) 2017-08-22 15:58:00 Mem orial [place] Respitory Rate 2017-08-22 15:58:00 Mary al [place] Height 2017-08-22 15:58:00 165.1 cm [facility] Temperature Oral (F) 2017-08-22 15:58:00 98.1 F [facility] Heart Rate 2017-08-22 15:58:00 [facility] Procedures Procedure Date / Time Performed Performing Clinician Robson estrada Cholecystectomy [facility] [place] Gastric bypass [facility] [place] Hysterectomy [facility] [place] Operation<sup>1</sup> [facility] ermann Encounters Start End Encounter Admission Attending Care Care Encounter Source Date/Time Date/Time Type Type Clinicians Facility Department ID 2017-08-25 2017-08-26 Outpatient Dominick [facility] [id number] 21:14:00 10:53:00 Peter 82 2017-08-22 2017-08-22 Outpatient Shakeel [facility] [id number] 10:37:00 14:28:00 Sanchezricky Escobar 2017-08-22 2017-08-22 Emergency E [facility] [id number] Memoria 10:37:00 10:37:00 l Kai [facility] l [facility] l Results Test Description Test Time Test Comments Results Result Tracy natalie Comments MYOCARD IMAGING, 2018-09-25 CAD risk, low FINAL REPORT PATIENT SINGLE, PHARM, 5 assymptomatic ID: [id number] SPECT 16:12:00 PROCEDURE: MYOCARDIAL PERFUSION SPECT IMAGING (Stress-Only)CPT CODE: [id number] INDICATION: Evaluate acute chest pain/discomfort CARDIOVASCULAR PROFILE:CAD History: NoneSymptoms: Chest painRisk Factors: Hypertension, obesityBMI: 41.2Medications: Aspirin, atorvastatin STRESS PROTOCOL:Pharmacologic stress was achieved with a 10-second intravenous infusion of regadenoson 0.4 mg. The radiopharmaceutical was administered 30 seconds after the start of the regadenoson infusion. IMAGING PROTOCOL:30.4 mCi of Tc-99m sestamibi was injected intravenously at peak stress, and gated SPECT images were obtained. Image quality is good. REST FINDINGS:HR: 49/minBP: 103/61 mmHgPrelim. EKG: Sinus bradycardia, PVCs. STRESS FINDINGS:HR: 105/min (58% of MPHR)BP: 142/94 mmHgPrelim. EKG: No ischemic changes.Symptoms: Chest pain/discomfort 10 out of 10, nausea, flushing, dyspnea (treated with 125 mg of IV Aminophyllin). Perfusion: Normal.Wall Motion: Normal (LVEF 55%).LV Volume: Normal.RV Volume: Normal. IMPRESSION:1. Normal study.2. Normal myocardial perfusion. 3. Normal LVEF with stress. 4. Normal extracardiac tracer distribution.5. There is no prior study for comparison. Signed: Karsten Mace MDReport Verified Date/Time: 10/09/2018 16:12:47 Reading Location: [facility] 3rd Txr [id number] [employer] Med Reading Room PERF 2018-09-25 Iodine contrast FINAL REPORT PATIENT IMAGING, PARTIC, 4 allergy ID: [id number] VENT 15:20:00 PROCEDURE: V/Q LUNG SCAN CPT CODE: 77838 INDICATION: Chest pain, elevated d-dimer PROTOCOL: 10.2 mCi of Xe-133 gas was administered by inhalation. Single breath and rebreathing/washout images were obtained in the anterior and posterior projections. 4.3 mCi of Tc-99m MAA was then injected intravenously, and static perfusion images were obtained in multiple projections. FINDINGS: Ventilation: Initial tracer distribution is physiological. Washout proceeds normally. Perfusion: Tracer distribution is physiological. IMPRESSION:Normal study. 1. No evidence of pulmonary embolization is seen. Signed: Cyrus Gilbert MDReport Verified Date/Time: 10/08/2018 15:20:26 Reading Location: [facility] 26th Txr [id number] [employer] Med Reading Room D-DIMER 2018-10-07 14:47:00 Test Item Value Reference Range Interpretation Comme nts D-DIMER QUANTITATIVE (BEAKER) (test code = 671) 0.50 MG/L FEU <0.50 H Intended Use: The D-Dimer Assay can be used to aid in the diagnosis of Deep Vein Thrombosis (DVT) and Pulmonary Embolism Disease (PED).In patients with low pre- test probability, various studies concerning STA Liatest D-dimer test have reported that with a cutoff value of 0.50 MG/L FEU, the Negative Predictive Value (NPV) regarding the exclusion of thrombosis is within 95-100% range.RPR 2018-10-07 13:57:00 Test Item Value Reference Range Interpretation Comments RPR SCREEN (BEAKER) (test code = Nonreactive Nonreactive 420) VITAMIN [id number] 09:39:00 Test Item Value Reference Range Interpretation Comments VITAMIN B12 (BEAKER) (test code = > pg/mL 213-816 H 774) HEMOGLOBIN [id number] 08:49:00 Test Item Value Reference Range Interpretation Comments HEMOGLOBIN A1C (BEAKER) (test code = 5.5 % 4.3-6.1 368) C-REACTIVE [id number] 05:32:00 Test Item Value Reference Range Interpretation Comments C-REACTIVE PROTEIN (BEAKER) (test 0.18 mg/dL 0.00-0.50 code = 676) LIPID [id number] 05:08:00 Test Item Value Reference Range Interpretation Comments TRIGLYCERIDES (BEAKER) (test code = 87 mg/dL 540) CHOLESTEROL (BEAKER) (test code = 165 mg/dL 631) HDL CHOLESTEROL (BEAKER) (test code 58 mg/dL = 976) LDL CHOLESTEROL CALCULATED (BEAKER) 90 mg/dL (test code = 633) Triglyceride Reference Range: Low Risk <150 Borderline 150-199 High Risk 200-499 Very High Risk >=500Cholesterol Reference Range: Low Risk <200 Borderline 200-239 High Risk >240HDL Cholesterol Reference Range: Low Risk >=60 High Risk <40LDL Cholesterol Reference Range: Optimal <100 Near Optimal 100-129 Borderline 130-159 High 160-189 Very High >=190TSH/FREE T4 IF [id number] 05:08:00 Test Item Value Reference Range Interpretation Comments THYROID STIMULATING HORMONE 2.56 uIU/mL 0.35-4.94 (BEAKER) (test code = 772) TROPONIN [id number] 04:57:00 Test Item Value Reference Range Interpretation Comments TROPONIN I (BEAKER) (test code = 397) < ng/mL 0.00-0.03 Troponin I (TnI) levels must be interpreted in the context of the presenting symptoms and the clinical findings. Elevated TnI levels indicate myocardial damage, but are not specific for ischemic heart disease. Elevated TnI levels are seen in patients with other cardiac conditions (including myocarditis and congestive heart failure), and slight TnI elevations occur in patients with other conditions, including sepsis, renal failure, acidosis, acute neurological disease, and persistent tachyarrhythmia.TROPONIN [id number] 22:55:00 Test Item Value Reference Range Interpretation Comments TROPONIN I (BEAKER) (test code = 397) < ng/mL 0.00-0.03 Troponin I (TnI) levels must be interpreted in the context of the presenting symptoms and the clinical findings. Elevated TnI levels indicate myocardial damage, but are not specific for ischemic heart disease. Elevated TnI levels are seen in patients with other cardiac conditions (including myocarditis and congestive heart failure), and slight TnI elevations occur in patients with other conditions, including sepsis, renal failure, acidosis, acute neurological disease, and persistent tachyarrhythmia.HEMOGLOBIN [id number] 14:45:00 Test Item Value Reference Range Interpretation Comments HEMOGLOBIN A1C (BEAKER) (test code = 5.5 % 4.3-6.1 368) TROPONIN [id number] 14:15:00 Test Item Value Reference Range Interpretation Comments TROPONIN I (BEAKER) (test code = 397) < ng/mL 0.00-0.03 Troponin I (TnI) levels must be interpreted in the context of the presenting symptoms and the clinical findings. Elevated TnI levels indicate myocardial damage, but are not specific for ischemic heart disease. Elevated TnI levels are seen in patients with other cardiac conditions (including myocarditis and congestive heart failure), and slight TnI elevations occur in patients with other conditions, including sepsis, renal failure, acidosis, acute neurological disease, and persistent tachyarrhythmia.[id number] 14:09:00 Test Item Value Reference Range Interpretation Comments MAGNESIUM (BEAKER) (test code = 1.8 mg/dL 1.6-2.6 627) BASIC METABOLIC [id number] 14:09:00 Test Item Value Reference Range Interpretation Comments SODIUM (BEAKER) 137 meq/L 136-145 (test code = 381) POTASSIUM (BEAKER) 3.8 meq/L 3.5-5.1 (test code = 379) CHLORIDE (BEAKER) 107 meq/L 98-107 (test code = 382) CO2 (BEAKER) (test 24 meq/L 22-29 code = 355) BLOOD UREA NITROGEN 11 mg/dL 7-21 (BEAKER) (test code = 354) CREATININE (BEAKER) 0.76 mg/dL 0.57-1.25 (test code = 358) GLUCOSE RANDOM 122 mg/dL 70-105 H (BEAKER) (test code = 652) CALCIUM (BEAKER) 8.8 mg/dL 8.4-10.2 (test code = 697) EGFR (BEAKER) (test 102 mL/min/1.73 ESTIM ATED GFR IS code = 1092) sq m NOT ACCURATE CREATININE CLEARANCE IN PREDICTING GLOMERULAR FILTRATION RATE . ESTIMATED GFR I S NOT APPLICABLE FOR DIALYSIS PATIEN TS. LIPID [id number] 14:09:00 Test Item Value Reference Range Interpretation Comments TRIGLYCERIDES (BEAKER) (test code = 54 mg/dL 540) CHOLESTEROL (BEAKER) (test code = 158 mg/dL 631) HDL CHOLESTEROL (BEAKER) (test code 58 mg/dL = 976) LDL CHOLESTEROL CALCULATED (BEAKER) 89 mg/dL (test code = 633) Triglyceride Reference Range: Low Risk <150 Borderline 150-199 High Risk 200-499 Very High Risk >=500Cholesterol Reference Range: Low Risk <200 Borderline 200-239 High Risk >240HDL Cholesterol Reference Range: Low Risk >=60 High Risk <40LDL Cholesterol Reference Range: Optimal <100 Near Optimal 100-129 Borderline 130-159 High 160-189 Very High >=190PROTHROMBIN [id number] 13:59:00 Test Item Value Reference Range Interpretation Comments PROTIME (BEAKER) (test code = 13.5 seconds 11.9-14.2 759) INR (BEAKER) (test code = 370) 1.1 <=5.9 Effective 07/23/2018: PT Reference Range ChangeNew: 11.9-14.2 Previous: 11.7- 14.7RECOMMENDED COUMADIN/WARFARIN INR THERAPY RANGESSTANDARD DOSE: 2.0-3.0 Includes: PROPHYLAXIS for venous thrombosis, systemic embolization; TREATMENT for venous thrombosis and/or pulmonary embolus.HIGH RISK: Target INR is2.5-3.5 for patients wiht mechanical heart valves.[id number] 13:59:00 Test Item Value Reference Range Interpretation Comments PARTIAL THROMBOPLASTIN TIME 33.3 seconds 22.5-36.0 (BEAKER) (test code = 760) CBC W/PLT COUNT & AUTO [id number] 13:51:00 Test Item Value Reference Range Interpretation Comments WHITE BLOOD CELL COUNT (BEAKER) 7.9 K/ L 3.5-10.5 (test code = 775) RED BLOOD CELL COUNT (BEAKER) 4.65 M/ L 3.93-5.22 (test code = 761) HEMOGLOBIN (BEAKER) (test code = 12.7 GM/DL 11.2-15.7 410) HEMATOCRIT (BEAKER) (test code = 40.9 % 34.1-44.9 411) MEAN CORPUSCULAR VOLUME (BEAKER) 88.0 fL 79.4-94.8 (test code = 753) MEAN CORPUSCULAR HEMOGLOBIN 27.3 pg 25.6-32.2 (BEAKER) (test code = 751) MEAN CORPUSCULAR HEMOGLOBIN CONC 31.1 GM/DL 32.2-35.5 L (BEAKER) (test code = 752) RED CELL DISTRIBUTION WIDTH 13.0 % 11.7-14.4 (BEAKER) (test code = 412) PLATELET COUNT (BEAKER) (test 183 K/CU MM 150-450 code = 756) MEAN PLATELET VOLUME (BEAKER) 10.3 fL 9.4-12.3 (test code = 754) NUCLEATED RED BLOOD CELLS 0 /100 WBC 0-0 (BEAKER) (test code = 413) NEUTROPHILS RELATIVE PERCENT 73 % (BEAKER) (test code = 429) LYMPHOCYTES RELATIVE PERCENT 21 % (BEAKER) (test code = 430) MONOCYTES RELATIVE PERCENT 5 % (BEAKER) (test code = 431) EOSINOPHILS RELATIVE PERCENT 1 % (BEAKER) (test code = 432) BASOPHILS RELATIVE PERCENT 0 % (BEAKER) (test code = 437) NEUTROPHILS ABSOLUTE COUNT 5.74 K/ L 1.56-6.13 (BEAKER) (test code = 670) LYMPHOCYTES ABSOLUTE COUNT 1.61 K/ L 1.18-3.74 (BEAKER) (test code = 414) MONOCYTES ABSOLUTE COUNT (BEAKER) 0.40 K/ L 0.24-0.36 H (test code = 415) EOSINOPHILS ABSOLUTE COUNT 0.07 K/ L 0.04-0.36 (BEAKER) (test code = 416) BASOPHILS ABSOLUTE COUNT (BEAKER) 0.03 K/ L 0.01-0.08 (test code = 417) IMMATURE GRANULOCYTES-RELATIVE 0 % 0-1 PERCENT (BEAKER) (test code = 2801) CARDIAC [id number] 07:31:00<0.02[facility] ENZ[facility]ES 2017-08-26 07:31:0073[facility] HermannCHEM [id number] 07:31:001.9[facility] VnrdpflTALBEPWZCCQA0704-44-97 07:31:0013.0[facility] VfbfaqmTBLRBROLTRRP4824-47-34 07:31:003.3[facility] CubjyikOWRXIHLRBASR3431-22-90 07:31:00 Test Item Value Reference Range Interpretation Comments B/C Ratio (test code = B/C Ratio) 17 1 6-25 [facility] [id number] 07:31:00 Test Item Value Reference Range Interpretation Comments A/G Ratio (test code = A/G Ratio) 0.9 1 0.7-1.6 [facility] UfkraltDHQCLXNNXDZR0074-18-09 07:31:25494Lqulvzss HermannELECTROLYTES 2017-08-26 07:31:0016[facility] QeaswdwKEFSPWRKIYSZ0281-72-00 07:31:0011[facility] CvajmlaDBROEVIJBCVY6660-53-95 07:31:000.8[facility] TvcsezuFFDGLZJARFAZ4062-95-68 07:31:0099[facility] HcompjiIOYRDWFLRWZG6793-45-79 07:31:0085[facility] JQJGQCDLHYDQ7031-11-96 07:31:000.71[facility] UqxczvaZUYAJPMXVMOH9205-80-00 07:31:004.0[facility] XbnuhtyNHKIVRLLESGJ0142-96-09 07:31:006.4[facility] KFLGFRLFQOTP8152-08-99 07:31:003.1[facility] HjrshajBRQXFITOJIHN1276-92-40 07:31:0026[facility] GhkdomwELVJJTGGNOOG5333-63-67 07:31:008.4[facility] SKCDAYHYATCV8829-04-32 07:31:47282Iyqxmrmb RupxrjvHSMJJMOPYLZO8897-83-17 07:31:10272Zfcrpwxw KqmhgioVLAYWQMBRBEG3195-90-46 07:31:0012[facility] VBQOIMCJDX7334-07-28 07:31:000.2[facility] HnvubahMFXQTTOSMS8379-77-42 07:31:000.5 [facility] PywfzddFGUUJNTUYL4519-74-64 07:31:0069.7[facility] HermannHEMATOLOGY 2017-08-26 07:31:0022.4[facility] CygthmsCBGAJCKSNR6697-15-43 07:31:005.6[facility] ZltbiyxPSWFJOIREE3581-05-01 07:31:006.6[facility] WlzfsvzGUNIOEAOZN4207-47-29 07:31:001.8[facility] HumvrgdYMNOXVZNRY6159-16-23 07:31:002.1[facility] USWJECOAKW5124-21-06 07:31:000.5[facility] KehvshlCNDIUCMELK5290-81-82 07:31:00 Test Item Value Reference Range Interpretation Comments PT (test code = PT) 13.3 s 12.0-14.7 [facility] [id number] 07:31:00 Test Item Value Reference Range Interpretation Comments PTT (test code = PTT) 37.2 s 22.9-35.8 [facility] [id number] 07:31:00 Test Item Value Reference Range Interpretation Comments INR (test code = INR) 1.01 1 0.85-1.17 [facility] KuskxyhWIGBUNWIYN5124-33-18 07:31:008.3[facility] HermannHEMATOLOGY 2017-08-26 07:31:0038.7[facility] VfibdhjYKVIGTGHKO0157-29-38 07:31:009.5[facility] GjrkrxaXXMKMQHFYD5144-49-08 07:31:004.55[facility] VxgwtfnEPROMNNGUU0813-65-06 07:31:0012.5[facility] ZelqwxzAJSLCPHYIW5833-11-42 07:31:19132Ngzppxra Kai VLSIBWDJOW0051-05-61 07:31:00 Test Item Value Reference Range Interpretation Comments MCH (test code = MCH) 27.4 pg 27.0-31.0 [facility] DxpuqjcVQVJUNOCON7122-21-83 07:31:0013.3[facility]annHEMATOLOGY 2017-08-26 07:31:0032.3[facility] GclxofmQNBNBIRLHN2481-27-25 07:31:0084.9[facility] HermannCARDIAC HVDLZII4831-86-67 02:36:000.7[facility] HermannCARDIAC ENZYMES 2017-08-26 02:36:00 Test Item Value Reference Range Interpretation Comments CK MB Index (test code = CK MB Index) 0.8 1 <=2.5 [facility]annCARDIAC [id number] 02:36:00<0.02[facility] CARDIAC [id number] 02:36:0087[facility] YtalojrLOEYLBLUNN2036-78-20 17:25:11915Ieynvnqt CtlkjzrECHZSRQONZ9648-17-86 17:25:009.8[facility] MVFEYTEKCF2867-93-59 17:25:00 Test Item Value Reference Range Interpretation Comments MCH (test code = MCH) 27.7 pg 27.0-31.0 [facility] LianxcnXIRJXOEMAM0653-17-13 17:25:0014.1[facility] HermannHEMATOLOGY 2017-08-22 17:25:0032.5[facility] GyohruyCRUYAUDKPT0581-74-29 17:25:004.83[facility] SiyielaCQUUHWSESC3751-60-96 17:25:0013.4[facility] JvtbzjpIDPQAAGVBR4022-18-76 17:25:0011.2[facility] QnatqtzVBAYASJIAM3637-51-07 17:25:0085.2[facility] VLQJMMDCVV0863-23-76 17:25:0041.2[facility] XzzhotiNUEFOVPMIV6366-94-09 17:25:00 Normal (08/22/17 12:25 PM)[facility] YmsdvduJGOFIZJNNU5678-36-33 17:25:0081.2 [facility] MfcxwfuKKUVULGTLO1545-99-55 17:25:00Normal (08/22/17 12:25 PM)[facility] FfaacniVXNYBWRVRN5683-65-52 17:25:000.3[facility] IfzmdhnYOSHWGLHDP0473-92-14 17:25:0013.4[facility] IczdklwHIFVXRSELD9495-71-18 17:25:004.8[facility] FORNAPZFDG1123-61-30 17:25:000.3[facility] ZkhlniwFAPZMFXFDG5022-59-30 17:25:001.5 [facility] PiisiteXBJVOQRCNT8021-02-84 17:25:009.1[facility] 2017-08-22 17:25:000.5[facility]annCARDIAC [id number] 16:53:00 Test Item Value Reference Range Interpretation Comments CK MB Index (test code = CK MB Index) 0.5 1 <=2.5 [facility] [id number] 16:53:87211Tezsqiee HermannCARDIAC [id number] 16:53:000.9[facility] HermannCARDIAC [id number] 16:53:00 <0.02[facility] MoktbfhCXPFEDRLPVTX2587-42-93 16:53:57371Tmnlyjhi [place] MTEZPLCVUCSK6072-64-80 16:53:005.1[facility] LbxbmdhTLXEILQKTQIJ6004-82-49 16:53:89952Ycydfdwq YftdzciWMCGPAYOWVWC4338-70-72 16:53:008.6[facility] WSYZJCRSJPSB3533-80-90 16:53:003.4[facility] LmbvqgqIVAKQJOVRLFG7038-43-50 16:53:00 Test Item Value Reference Range Interpretation Comments A/G Ratio (test code = A/G Ratio) 0.9 1 0.7-1.6 [facility] [id number] 16:53:18646Dlikahim HermannELECTROLYTES 2017-08-22 16:53:007.3[facility] FewyozlBXOTUOEYKFRF8336-72-40 16:53:23590Hrbhamll MxhvcjwQWYBVLNWVDJH1716-42-37 16:53:0044[facility] HndghidWGVHTDYWNKCE0830-26-36 16:53:0022[facility] QtyhqotNCXWEZJKAFFS9784-09-17 16:53:0024[facility] BYLSDYGADXUA5026-19-98 16:53:007[facility] PvmvigsCLNWKWHDKGHM1965-92-37 16:53:00 0.67[facility] AczrsfcVKLDYYEXTSBH5308-21-15 16:53:0089[facility] MWYQIYYNVWTR8678-73-27 16:53:003.9[facility] ToyeighUJFCRXTSBCBA6509-42-81 16:53:00 Test Item Value Reference Range Interpretation Comments B/C Ratio (test code = B/C Ratio) 10 1 - [facility] DdxawixWHKYMWORCEKA0271-82-59 16:53:001.1[facility] HermannELECTROLYTES 2017-08-22 16:53:0013.1[facility]
[2019-12-04] MEDS ORDERED: TETANUS & DIPHTHERIA TOX,ADULT 0.5 ML VIAL ONE (18:37)
[2019-12-04] MEDS ORDERED: LIDOCAINE 1% MPF 30 ML VIAL ONE (18:37)
--- NOTE | 2019-12-04 19:00 | ER ---
Nurse's Notes [facility] Name: Stephanie Verma Age: 44 yrs Sex: Female : 1975 Arrival Date: 12/04/2019 Time: 17:43 Bed 15 Private MD: Diagnosis: Laceration without foreign body of left hand Presentation: 12/03 17:56 Chief complaint: Patient states: Accidentally cut left hand thumb area 30 min SNOW [employer]ANGER while ll1 sharpening a knife at home. Bleeding controlled. Coronavirus screen: Client denies travel out of the [place] in the last 14 days. At this time, the client does not indicate any symptoms associated with coronavirus-19. Ebola Screen: Patient denies travel to an Ebola-affected area in the 21 days before illness onset. Complicating Factors: There are no complicating factors for this patient. Initial Sepsis Screen: Does the patient meet any 2 criteria? No. Patient's initial sepsis screen is negative. Does the patient have a suspected source of infection? Yes: Skin breakdown/wound. Risk Assessment: Do you want to hurt yourself or someone else? Patient reports no desire to harm self or others. Onset of symptoms was December 04, 2019. 17:56 Method Of Arrival: Ambulatory ll1 17:56 Acuity: SEGUNDO 4 ll1 Historical: - Allergies: 17:59 Iodinated Contrast Media - IV Dye; ll1 - PMHx: 17:59 DVT; ll1 - PSHx: 17:59 Gastric Bypass; Hysterectomy; Tummy tuck; ll1 17:59 2 Bowel obstruction repairs; ll1 - Immunization history:: Flu vaccine is not up to date. - Social history:: Smoking status: Patient denies any tobacco usage or history of. Screenin:45 Abuse screen: Denies threats or abuse. Denies injuries from another. Nutritional ss screening: No deficits noted. Tuberculosis screening: Never had TB. Fall Risk None identified. Assessment: 18:45 General: Appears in no apparent distress. comfortable, Behavior is cooperative, ss anxious. Pain: Complains of pain in heel of left hand Pain currently is 9 out of 10 on a pain scale. Quality of pain is described as tender, Pain began suddenly, Is continuous. Neuro: Level of Consciousness is awake, alert, obeys commands, Oriented to person, place, time, situation. Cardiovascular: Capillary refill < 3 seconds is brisk in bilateral fingers Patient's skin is warm and dry. Respiratory: Airway is patent Respiratory effort is even, unlabored, Respiratory pattern is regular, symmetrical. GI: No signs and/or symptoms were reported involving the gastrointestinal system. EENT: Oral mucosa is moist. Derm: Skin is intact, is healthy with good turgor, Skin is dry. Musculoskeletal: Circulation, motion, and sensation intact. Range of motion: intact in all extremities. Injury Description: Laceration sustained to heel of left hand is clean, 2.6 to 7.5 cm long, not bleeding, is bleeding no active bleeding noted. 19:22 Reassessment: Patient appears in no apparent distress at this time. Patient is alert, ca1 oriented x 3, equal unlabored respirations, skin warm/dry/pink. Vital Signs: 17:56 BP 161 / 94; Pulse 65; Resp 17; Temp 98.2; Pulse Ox 98% ; Weight 111.13 kg; Height 5 ll1 ft. 5 in. (165.10 cm); Pain 9/10; 19:22 BP 145 / 89; Pulse 61; Resp 17 S; Pulse Ox 99% on R/A; ca1 17:56 Body Mass Index 40.77 (111.13 kg, 165.10 cm) ll1 ED Course: 17:43 Patient arrived in ED. ds1 17:57 Triage completed. ll1 17:59 Arm band placed on Patient placed in an exam room, on a stretcher. ll1 18:08 Glory Hoang FNP-C is [facility]. kb 18:08 Kaiden Alaniz MD is Attending Physician. kb 18:22 Miley Zelaya RN is Primary Nurse. ss 18:45 Patient has correct armband on for positive identification. Bed in low position. Call ss light in reach. 19:00 Assist provider with laceration repair on heel of left hand that was 2.5 cm. or less ca1 using sutures. Set up tray. Performed by Glory TELLES Dressed with 4X4s, Kerlix, Neosporin, Patient tolerated well. 19:23 Patient did not have IV access during this emergency room visit. ca1 Administered Medications: 18:31 Drug: Tetanus-Diphtheria Toxoid Adult 0.5 ml {Cold Strip Feeder: [employer]. Exp: ss 04/29/2022. Lot #: [id number]. } Route: IM; Site: left deltoid; 19:00 Follow up: Response: No adverse reaction ca1 18:43 Drug: Lidocaine (1 %) 1 vials {Note: medication administered by Glory Hoang NP to ss affected area/ wound.} Volume: 20 ml; Route: Infiltration; Site: wound; Outcome: 19:00 Discharge ordered by MD. harrington 19:23 Discharged to home ambulatory. ca1 19:23 Condition: stable 19:23 Discharge instructions given to patient, Instructed on discharge instructions, follow up and referral plans. wound care, Demonstrated understanding of instructions, follow-up care, wound care. 19:24 Patient left the ED. ca1 Signatures: Glory Hoang, FRUIT AND VEGETABLE PARER-C FRUIT AND VEGETABLE PARER-Agata Varela ds1 Miley Zelaya RN RN ss Nidhi Deng RN RN ca1 Lluvia Yen RN RN ll1
--- NOTE | 2019-12-04 19:00 | EDPHYS ---
Physician Documentation [facility] Name: Stephanie Verma Age: 44 yrs Sex: Female : 1975 Arrival Date: 12/04/2019 Time: 17:43 Bed 15 Private MD: ED Physician Kaiden Alaniz HPI: 12/03 18:25 This 44 yrs old Black Female presents to ER via Ambulatory with complaints of kb Laceration To Hand. 18:25 The patient has a laceration related to: sharpening knife occurred at home, and there kb are no complicating factors. The injury was accidental. The laceration(s) is(are) located on the heel of left hand. Onset: The symptoms/episode began/occurred just prior to arrival. Associated signs and symptoms: The patient has no apparent associated signs or symptoms. The patient has not experienced similar symptoms in the past. The patient has not recently seen a physician. Historical: - Allergies: 17:59 Iodinated Contrast Media - IV Dye; ll1 - PMHx: 17:59 DVT; ll1 - PSHx: 17:59 Gastric Bypass; Hysterectomy; Tummy tuck; ll1 17:59 2 Bowel obstruction repairs; ll1 - Immunization history:: Flu vaccine is not up to date. - Social history:: Smoking status: Patient denies any tobacco usage or history of. ROS: 18:24 Constitutional: Negative for fever, chills, and weight loss, Cardiovascular: Negative kb for chest pain, palpitations, and edema, Respiratory: Negative for shortness of breath, cough, wheezing, and pleuritic chest pain, Abdomen/GI: Negative for abdominal pain, nausea, vomiting, diarrhea, and constipation, Back: Negative for injury and pain, MS/Extremity: Negative for injury and deformity, Neuro: Negative for headache, weakness, numbness, tingling, and seizure. 18:24 Skin: Positive for laceration(s), of the heel of left hand. Exam: 18:24 Constitutional: This is a well developed, well nourished patient who is awake, alert, kb and in no acute distress. Head/Face: Normocephalic, atraumatic. Chest/axilla: Normal chest wall appearance and motion. Nontender with no deformity. No lesions are appreciated. Cardiovascular: Regular rate and rhythm with a normal S1 and S2. No gallops, murmurs, or rubs. Normal PMI, no JVD. No pulse deficits. Respiratory: Lungs have equal breath sounds bilaterally, clear to auscultation and percussion. No rales, rhonchi or wheezes noted. No increased work of breathing, no retractions or nasal flaring. Abdomen/GI: Soft, non-tender, with normal bowel sounds. No distension or tympany. No guarding or rebound. No evidence of tenderness throughout. MS/ Extremity: Pulses equal, no cyanosis. Neurovascular intact. Full, normal range of motion. Neuro: Awake and alert, GCS 15, oriented to person, place, time, and situation. Cranial nerves II-XII grossly intact. Motor strength 5/5 in all extremities. Sensory grossly intact. Cerebellar exam normal. Normal gait. 18:24 Skin: injury, laceration(s), the wound is approximately 4 cm(s), of the heel of left hand, that can be described as clean, no foreign body, linear, without bleeding. Vital Signs: 17:56 BP 161 / 94; Pulse 65; Resp 17; Temp 98.2; Pulse Ox 98% ; Weight 111.13 kg; Height 5 ll1 ft. 5 in. (165.10 cm); Pain 9/10; 19:22 BP 145 / 89; Pulse 61; Resp 17 S; Pulse Ox 99% on R/A; ca1 17:56 Body Mass Index 40.77 (111.13 kg, 165.10 cm) ll1 Laceration: 18:58 Wound Repair of 4cm ( 1.6in ) subcutaneous laceration to heel of left hand. Linear kb shaped.. Distal neuro/vascular/tendon intact. Anesthesia: Wound infiltrated with 3 mls of 1% lidocaine. Wound prep: Extensive cleansing with hibiclenz by ct, Wound irrigation with saline by ct. Skin closed with 7 5-0 Prolene using simple sutures and sterile technique. Patient tolerated well. MDM: 18:08 Patient medically screened. kb 18:24 Data reviewed: vital signs, nurses notes. Data interpreted: Pulse oximetry: on room air kb is 98 %. Interpretation: normal. 18:59 Counseling: I had a detailed discussion with the patient and/or guardian regarding: the kb historical points, exam findings, and any diagnostic results supporting the discharge/admit diagnosis, the need for outpatient follow up, a family practitioner, to return to the emergency department if symptoms worsen or persist or if there are any questions or concerns that arise at home. 12/03 18:12 Order name: Prolene, Sutures; Complete Time: 18:34 kb 12/03 18:12 Order name: Dressing - Wound; Complete Time: 18:34 kb 12/03 18:12 Order name: Gloves, Sterile; Complete Time: 18:34 kb 12/03 18:12 Order name: Setup Suture Tray; Complete Time: 18:35 kb Administered Medications: 18:31 Drug: Tetanus-Diphtheria Toxoid Adult 0.5 ml {Information Operator: [employer]. Exp: ss 04/29/2022. Lot #: [id number]. } Route: IM; Site: left deltoid; 19:00 Follow up: Response: No adverse reaction ca1 18:43 Drug: Lidocaine (1 %) 1 vials {Note: medication administered by Glory Hoang NP to ss affected area/ wound.} Volume: 20 ml; Route: Infiltration; Site: wound; Disposition: 12/04 17:58 Co-signature as Attending Physician, Kaiden Alaniz MD I agree with the assessment and gisela plan of care. Disposition: 12/04/19 19:00 Discharged to Home. Impression: Laceration without foreign body of left hand. - Condition is Stable. - Discharge Instructions: Laceration Care, Adult, Ajbz-pv-Oyve. - Medication Reconciliation Form, Thank You Letter, Antibiotic Education, Prescription Opioid Use form. - Follow up: Emergency Department; When: As needed; Reason: Worsening of condition. Follow up: Private Physician; When: 2 - 3 days; Reason: Recheck today's complaints, Continuance of care, Re-evaluation by your physician. - Notes: Have sutures removed in 7-10 days Signatures: Glory Hoang, ALLEY-C WELL SURVEYING ENGINEER-Robbb Kaiden Alaniz MD MD cha Smirch, Shelby, RN RN ss Acob, Cheryl, RN RN ca1 Lewis, Lynsay, RN RN ll1 Corrections: (The following items were deleted from the chart) 12/03 19:24 19:00 12/04/2019 19:00 Discharged to Home. Impression: Laceration without foreign body ca1 of left hand. Condition is Stable. Forms are Medication Reconciliation Form, Thank You Letter, Antibiotic Education, Prescription Opioid Use. Follow up: Emergency Department; When: As needed; Reason: Worsening of condition. Follow up: Private Physician; When: 2 - 3 days; Reason: Recheck today's complaints, Continuance of care, Re-evaluation by your physician. kb
[2019-12-04 19:32] VITALS: TEMP 98.2
[2019-12-04 19:34] VITALS: BP 145/89; O2SAT 99
== END 2019-12-04 19:24 | disposition home or self-care (01) ==
LOC: ER 17:42
PROC: 0JQK0ZZ Repair Left Hand Subcutaneous Tissue and Fascia, Open Approach (ICD-10-PCS; principal; 2019-12-04)
DX: S61.412A Laceration without foreign body of left hand, initial encounter (principal); W26.0XXA Contact with knife, initial encounter; Y93.89 Activity, other specified; Y92.009 Unspecified place in unspecified non-institutional (private) residence as the place of occurrence of the external cause; Z91.041 Radiographic dye allergy status; Z98.84 Bariatric surgery status; Z23 Encounter for immunization
CPT/HCPCS: 90471; 90714; 99283

== ENCOUNTER 2019-12-11 14:11 | Emergency (ER) | payer OTHER ==
--- OUTSIDE RECORDS SUMMARY | 2019-12-11 14:13 | XMS REPORT | Clinical Summary ---
:1975 Author Organization [facility] Address [address] [place] [address] Care Team Providers Name Role Phone Donald [...] Assigned at Date Recorded Not on file Last Filed Vital Signs Not on file Plan of Treatment Not on file Results Not on fileafter 12/10/2018 Advance Directives For more information, please contact: [phone] Code Status Date Activated Date Inactivated Comments Full Code 10/06/2018 10:00 AM 10/10/2018 12:04 AM This code status was determined by: Patient Name Relationship Healthcare Agent Relationship Co mmunication Low Elder Significant Other [facility] Agent
--- OUTSIDE RECORDS SUMMARY | 2019-12-11 14:14 | XMS REPORT | Continuity of Care Document ---
:1975 Author Organization [facility] [place] Information [place] Care Team Providers Name Role Phone [facility] [place] [facility] Unavailable Un available Problems Problem Status Onset Classification Date Comments Sourc e Date Reported OTHER Active 08/26/19 [place] [id number] [place] Other chest pain 08/23/19 08/25/2017 [place] [id number] [place] CHEST PAIN Active 08/23/19 [place] [id number] [place],[facility] Laparoscopic Active 09/29/19 Problem 08/29/2017 cholecystectomy 11 [place] [facility], with [facility] cholangiography [facility] (procedure) Esophagogastrostom Active 02/25/19 Problem 08/29/2017 y, antesternal or 04 [place], antethoracic [facility] (procedure) [facility] Multiple myeloma 08/29/2017 [place] not having achieved remission Essential 08/29/2017 [place] (primary) hypertension Neoplasm related 08/29/2017 [place] pain (acute) (chronic) Abdominal pain Active Problem 08/29/2017 (finding) [place],[facility] CHEST PAIN, Active [facility] UNSPECIFIED [place] OTHER SPECIFIED Active [place] DISORDERS OF WHITE H ermann BLOOD OTHER FORMS OF Active Memor ial STOMATITIS [place] OTHER SPECIFIED Active [place] rial ABNORMAL [place] IMMUNOLOGICAL F MULTIPLE MYELOMA Active Mem orial NOT HAVING [place] ACHIEVED REM ESSENTIAL Active [facility] (PRIMARY) [place] HYPERTENSION NEOPLASM RELATED Active Mem orial PAIN (ACUTE) [place] (CHRONIC) Medications Medication Details Route Status Patient Ordering Order Source Instructions Provider Date atorvastatin Notes: (Same Inactive As: Lipitor) 2017 [place] Acetaminophen 1 - 2 tab, PO, No Longer H 300 MG / Q4H, PRN Pain, Active 2017 [place] Codeine X 2 day, # 20 Phosphate 30 MG tab, 0 Oral Tablet Refill(s) [Tylenol with Codeine #3] Aspirin Notes: Do not Inactive crush or chew. 2017 [place] (Same As: Ecotrin) Enoxaparin Notes: (Same No Longer as: Lovenox) Active 2017 [place] Acetaminophen Notes: Do not No Longer exceed 4 Active 2017 [place] gm/day. (Same as: Tylenol) Morphine Notes: No Longer Preservative Active 2017 [place] free. (Same as: Morphine Sulfate-PF) Ondansetron Notes: (Same No Longer as: Zofran) Active 2017 [place] MEDICATION WASTE Product Size: 4 mg Product [...] 50 mg, Route: Inactive IVP, ONCE, 2017 [facility] Dosing Weight [facility] 95.455, kg, Priority: STAT, Start date: 08/22/17 12:59:00 CDT, Stop date: 08/22/17 12:59:00 CDT GI cocktail 30 mL, Route: Inactive PO, Dosing 2017 [facility] Weight 95.455, [place] kg, ONCE, STAT, Start date: 08/22/17 11:24:00 CDT, Stop date: 08/22/17 11:24:00 CDT Ketorolac 4 days Inactive MEDICATION 2017 [facility] WASTE [facility] Product Size: 30 mg Product Wasted: ___ mg Saline Flush Notes: (Same Inactive 0.9% as: BD 2017 [facility] Posiflush) [facility] Allergies, Adverse Reactions, Alerts Substance Category Reaction Severity Reaction Status Date Comments S ource type Reported iodine Assertion Drug Active allergy [place] Immunizations No Data Provided for This Section Results Order Name Results Value Reference Date Interpretation Comments Latisha rce Range CARDIAC Troponin-I <0.02 0.00 - 08/26 ENZYMES 0.40 /2017 [place] CARDIAC Total CK 73 12 - 191 08/26 ENZYMES /2017 [place] CHEM PANEL Magnesium 1.9 1.8 - 2.4 08/26 MH Lvl [place] ELECTROLYTES AGAP 13.0 10.0 - 07/ MH 20.0 /2018 [place] ELECTROLYTES Globulin 3.3 2.7 - 4.2 08/26 [place] ELECTROLYTES B/C Ratio 17 6 - 25 08/26 [place] ELECTROLYTES A/G Ratio 0.9 0.7 - 1.6 08/26 [place] ELECTROLYTES eGFR 123 08/26 Result Comment: The [place] eGFR is calculated using the CKD-EPI formula. [...] ELECTROLYTES ALT 16 0 - 65 08/26 [place] ELECTROLYTES AST 11 0 - 37 08/26 [place] ELECTROLYTES Bili Total 0.8 0.2 - 1.3 08/26 [place] ELECTROLYTES Alk Phos 99 39 - 136 08/26 [place] ELECTROLYTES Glucose Lvl 85 70 - 99 08/26 [place] ELECTROLYTES Creatinine 0.71 0.50 - 07 MH Lvl 1.40 /2018 [place] ELECTROLYTES Potassium 4.0 3.5 - 5.1 08/26 MH Lvl [place] ELECTROLYTES Total 6.4 6.4 - 8.4 08/26 MH Protein [place] ELECTROLYTES Albumin Lvl 3.1 3.5 - 5.0 08/26 [place] ELECTROLYTES CO2 26 24 - 32 08/26 [place] ELECTROLYTES Calcium Lvl 8.4 8.5 - 10.5 08/26 [place] ELECTROLYTES Chloride Lvl 108 95 - 109 07/ /2017 [place] ELECTROLYTES Sodium Lvl 143 135 - 145 07/ /2017 [place] ELECTROLYTES BUN 12 7 - 22 07/ /2017 [place] HEMATOLOGY Eosinophils 0.2 0.0 - 0.5 07/ MH # /2017 [place] HEMATOLOGY Monocytes # 0.5 0.0 - 0.8 07/ /2017 [place] HEMATOLOGY Segs 69.7 45.0 - 07/ MH 75.0 /2017 [place] HEMATOLOGY Lymphocytes 22.4 20.0 - 07/ MH 40.0 /2017 [place] HEMATOLOGY Monocytes 5.6 2.0 - 12.0 07/ /2017 [place] HEMATOLOGY Segs-Bands # 6.6 1.5 - 8.1 08/26 /2017 [place] HEMATOLOGY Eosinophils 1.8 0.0 - 4.0 08/26 /2017 [place] HEMATOLOGY Lymphocytes 2.1 1.0 - 5.5 08/26 MH # /2017 [place] HEMATOLOGY Basophils 0.5 0.0 - 1.0 08/26 /2017 [place] HEMATOLOGY PT 13.3 12.0 - 07 MH 14.7 [place] HEMATOLOGY PTT 37.2 22.9 - 08/26 MH 35.8 /2017 [place] HEMATOLOGY INR 1.01 0.85 - 07 MH 1.17 [place] HEMATOLOGY MPV 8.3 7.4 - 10.4 08/26 /2017 [place] HEMATOLOGY Hct 38.7 36.0 - 07 MH 48.0 [place] HEMATOLOGY WBC 9.5 3.7 - 10.4 08/26 [place] HEMATOLOGY RBC 4.55 4.20 - 07 MH 5.40 /2017 [place] HEMATOLOGY Hgb 12.5 12.0 - 07 MH 16.0 [place] HEMATOLOGY Platelet 216 133 - 450 07/ [place] HEMATOLOGY MCH 27.4 27.0 - 07 MH 31.0 [place] HEMATOLOGY RDW 13.3 11.5 - 07 MH 14.5 [place] HEMATOLOGY MCHC 32.3 32.0 - 07 MH 36.0 [place] HEMATOLOGY MCV 84.9 80.0 - 07 MH 98.0 [place] CARDIAC CK MB 0.7 0.5 - 3.6 07 ENZYMES /2017 [place] CARDIAC CK MB Index 0.8 0.0 - 2.5 08/26 ENZYMES /2017 [place] CARDIAC Troponin-I <0.02 0.00 - 08/26 ENZYMES 0. [place] CARDIAC Total CK 87 12 - 191 08/26 ENZYMES /2017 [place] HEMATOLOGY Platelet 146 133 - 450 08/22 [facility] HEMATOLOGY MPV 9.8 7.4 - 10.4 08/22 MH /2017 [facility] HEMATOLOGY MCH 27.7 27.0 - 08/22 MH 31.0 [facility] HEMATOLOGY RDW 14.1 11.5 - 08/22 MH 14. [facility] HEMATOLOGY MCHC 32.5 32.0 - 08/22 MH 36.0 [facility] HEMATOLOGY RBC 4.83 4.20 - 08/22 MH 5.40 [facility] HEMATOLOGY Hgb 13.4 12.0 - 08/22 MH 16.0 [facility] HEMATOLOGY WBC 11.2 3.7 - 10.4 08/22 [facility] HEMATOLOGY MCV 85.2 80.0 - 08/22 MH 98.0 [facility] HEMATOLOGY Hct 41.2 36.0 - 08/22 MH 48.0 [facility] HEMATOLOGY RBC Morph Normal 08/22 (08/22/17 12:25 PM) [facility] HEMATOLOGY Segs 81.2 45.0 - 08/22 MH 75.0 [facility] HEMATOLOGY Plt Morph Normal 08/22 (08/22/17 12:25 PM) /2017 [facility] HEMATOLOGY Eosinophils 0.3 0.0 - 4.0 08/22 [facility] HEMATOLOGY Lymphocytes 13.4 20.0 - 08/22 MH 40.0 [facility] HEMATOLOGY Monocytes 4.8 2.0 - 12.0 08/22 [facility] HEMATOLOGY Basophils 0.3 0.0 - 1.0 08/22 [facility] HEMATOLOGY Lymphocytes 1.5 1.0 - 5.5 08/22 MH # /2017 [facility] HEMATOLOGY Segs-Bands # 9.1 1.5 - 8.1 08/22 [facility] HEMATOLOGY Monocytes # 0.5 0.0 - 0.8 08/22 [facility] CARDIAC CK MB Index 0.5 0.0 - 2.5 08/22 ENZYMES /2017 [facility] CARDIAC Total CK 176 12 - 191 08/22 ENZYMES [facility] CARDIAC CK MB 0.9 0.5 - 3.6 08/22 ENZYMES [facility] CARDIAC Troponin-I <0.02 0.00 - 08/22 ENZYMES 0.40 [facility] ELECTROLYTES Sodium Lvl 140 135 - 145 08/22 [facility] ELECTROLYTES Potassium 5.1 3.5 - 5.1 08/22 MH Lvl /2017 [facility] ELECTROLYTES Chloride Lvl 108 95 - 109 08/22 [facility] ELECTROLYTES Calcium Lvl 8.6 8.5 - 10.5 08/22 [facility] ELECTROLYTES Albumin Lvl 3.4 3.5 - 5.0 08/22 [facility] ELECTROLYTES A/G Ratio 0.9 0.7 - 1.6 08/22 [facility] ELECTROLYTES eGFR 127 08/22 [facility] Comment: The [facility] eGFR is [place] calculated using the CKD-EPI [...] Total 7.3 6.4 - 8.4 08/22 Protein [facility] ELECTROLYTES Alk Phos 107 39 - 136 08/22 [facility] ELECTROLYTES AST 44 0 - 37 08/22 [facility] ELECTROLYTES ALT 22 0 - 65 08/22 [facility] ELECTROLYTES CO2 24 24 - 32 08/22 [facility] ELECTROLYTES BUN 7 7 - 22 08/22 [facility] ELECTROLYTES Creatinine 0.67 0.50 - 08/22 Lvl 1.40 [facility] ELECTROLYTES Glucose Lvl 89 70 - 99 08/22 [facility] ELECTROLYTES Globulin 3.9 2.7 - 4.2 08/22 [facility] ELECTROLYTES B/C Ratio 10 6 - 25 08/22 [facility] ELECTROLYTES Bili Total 1.1 0.2 - 1.3 08/22 [facility] ELECTROLYTES AGAP 13.1 10.0 - 08/22 20.0 [facility] Pathology Reports No Data Provided for This Section Diagnostic Reports Report Value Date Source Chest w contrast CT HISTORY: - chest pain; pulmonary nodules 0 08/22/2017 [facility] TECHNIQUE: Contiguous axial CT images of the [...] IMPRESSION: No evidence of acute cardiopulmonary disease. [id number] Chest 1view DX SINGLE VIEW CHEST X-RAY. 08/22/2017 10:58 AM CDT 08/22/2017 [facility] INDICATION: - chest pain TECHNIQUE: Single frontal [...] Source Systolic (mm Hg) 121 08/26/2017 [facility] [place] Diastolic (mm Hg) 83 08/26/2017 [facility] [place] Respitory Rate 16 08/26/2017 [facility] [place] Heart Rate 62 08/26/2017 [facility] [place] Temperature Oral (F) 98.4 F 08/26/2017 [facility] [place] Systolic (mm Hg) 111 08/26/2017 [facility] [place] Diastolic (mm Hg) 65 08/26/2017 [facility] [place] Respitory Rate 16 08/26/2017 [facility] [place] Temperature Oral (F) 98.5 F 08/26/2017 [facility] [place] Heart Rate 57 08/26/2017 [facility] [place] Systolic (mm Hg) 117 08/26/2017 [facility] [place] Diastolic (mm Hg) 82 08/26/2017 [facility] [place] Respitory Rate 16 08/26/2017 [facility] [place] Heart Rate 57 08/26/2017 [facility] [place] Temperature Oral (F) 98.8 F 08/26/2017 [facility] [place] Temperature Oral (F) 98.3 F 08/22/2017 [facility] Heart [facility] 61 [facility]22[facility] 18 08/22/2017 [facility] Systolic (mm Hg) 133 08/22/2017 [facility] Diastolic (mm Hg) 71 08/22/2017 [facility] Weight 95.455 08/22/2017 [facility] BMI Calculated 35.02 08/22/2017 [facility] Systolic (mm Hg) 129 08/22/2017 [facility] Diastolic (mm Hg) 69 08/22/2017 [facility] Respitory Rate 18 08/22/2017 [facility] Height 165.1 cm 08/22/2017 [facility] Temperature Oral (F) 98.1 F 08/22/2017 [facility] Heart Rate 57 08/22/2017 [facility] Encounters Location Location Encounter Encounter Reason Attending ADM DC Stat us Source Details Type Number For Provider Date Date Visit [facility] [id number] [place] 08/22 08[facility] Mary bhat [facility] Observation [id number] [place] 08/26 08/26 Kai Tan /2017 [facility] Procedures Procedure Code Date Perfomer Comments Source Cholecystectomy [id number] [place] Gastric bypass [id number] [place] Hysterectomy [id number] [facility] Operation<sup>1</sup [id number] bowel P [place] > obstruction Assessment and Plan Assessment and Plan Date Source Extracted from:Title: General Admission H&P * 08/26/2017 [facility] Author: Sandip Shore MD Date: 08/25/17 Impression [...] History Date Source Social History TypeResponse 08/26/2017 [facility] Smoking Status Never smoker; Previous treatment: None; Ready to change: No; Concerns about tobacco use in household: No; Exposure to Tobacco Smoke None; Cigarette Smoking Last 365 Days No; Reg Smoking Cessation Counse ling No; Tobacco use per day: 0; Number of years: 0; Total pack years: 0; Started at age: 2.0; Stopped at age: 2; entered on: 08/25/17 Social History TypeResponse 08/22/2017 [facility] Smoking Status Never smoker; Ready to change: [...]
--- OUTSIDE RECORDS SUMMARY | 2019-12-11 14:15 | XMS REPORT | Continuity of Care Document ---
:[address] [facility] t Address [address] [place] [address] Care Team Providers Name Role Phone Donald Primary Care Physician ANDREAS Attending Clinician Unavailable Dominick Attending Clinician Shawn Beckford Attending Clinician ANDREAS Admitting Clinician Unavailable Dominick Admitting Clinician Problems Condition Condition Condition Status Onset Resolution Last Treating Co mments Source Name Details Category Date Date Treatment Clinician Date Weakness Weakness Disease [facility] 00 [employer] Chest pain Chest pain Disease Active [facility] Weakness Weakness Disease [facility] lower lower 00:00: Medical extremity extremity 00 Cent er OTHER Diagnosis Active 2017-08-25 Mem oria 08-25 21:09:00 l OTHER 00:00: Kai 00 Active 08/25/2017 [facility] Kai CHEST PAIN Diagnosis Active 2018-07-15 Memoria 08-22 07:16:00 l CHEST 00:00: [place] PAIN 00 Active 08/22/2017 [facility] Laparoscop Problem Active 2017-08-29 M emoria ic 09-28 01:51:10 l cholecyste 00:00: Terry n ctomy with Laparoscop 00 cholangiog ic alena cholecyste (procedure ctomy with ) cholangiog alena (procedure ) Active 09/28/2010 Problem 08/29/2017 Darby Loza [facility] Esophagoga Problem Active 2003-0 2017-08-29 M emoria strostomy, 1- 01:51:10 l antesterna 00:00: Terry n l or Esophagoga 00 antethorac strostomy, ic antesterna (procedure l or ) antethorac ic (procedure ) Active 02/25/2003 Problem 08/29/2017 Darby Loza [facility] Multiple Problem 2017-08-29 Mem oria myeloma 01:51:10 l not having Multiple He rmann achieved myeloma remission not having achieved remission 08/29/2017 [facility] Essential Problem 2017-08-29 Me moria (primary) 01:51:10 l hypertensi Terry n on Essential (primary) hypertensi on 08/29/2017 [facility] Neoplasm Problem 2017-08-29 Mem oria related 01:51:10 l pain Neoplasm Terry n (acute) related (chronic) pain (acute) (chronic) 08/29/2017 [facility] Abdominal Problem Active 2017-08-29 Me moria pain 01:51:10 l (finding) Kai Abdominal pain (finding) Active Problem 08/29/2017 Darby Loza [facility] CHEST Diagnosis Active 2017-08-27 Mem oria PAIN, 07:53:00 l UNSPECIFIE CHEST Anali nn D PAIN, UNSPECIFIE D Active [facility] Kai OTHER Diagnosis Active 2017-08-25 Mem oria SPECIFIED 21:09:00 l DISORDERS OTHER Terry n OF WHITE SPECIFIED BLOOD DISORDERS OF WHITE [facility]LO[facility] OTHER Diagnosis Active 2017-08-27 Mem oria FORMS OF 07:53:00 l STOMATITIS OTHER Anali nn FORMS OF STOMATITIS [facility] OTHER Diagnosis Active 2017-08-27 Mem oria SPECIFIED 07:53:00 l ABNORMAL OTHER [place] IMMUNOLOGI SPECIFIED FRANCESCA F ABNORMAL IMMUNOLOGI FRANCESCA F Active [facility] Kai MULTIPLE Diagnosis Active 2017-08-27 M emoria MYELOMA 07:53:00 l NOT HAVING MULTIPLE He rmann ACHIEVED MYELOMA REM NOT HAVING ACHIEVED REM Active [facility] [place] ESSENTIAL Diagnosis Active 2017-08-27 Memoria (PRIMARY) 07:53:00 l HYPERTENSI Terry n ON ESSENTIAL (PRIMARY) HYPERTENSI ON Active [facility] NEOPLASM Diagnosis Active 2017-08-27 M emoria RELATED 07:53:00 l PAIN NEOPLASM Terry n (ACUTE) RELATED (CHRONIC) PAIN (ACUTE) (CHRONIC) Active [facility] Other Problem 2017-2017-08-25 2017-08-25 M emoria chest pain 08-22 03:46:58 03:46:58 l Other 05:00: [place] chest pain 00 08/22/2017 08/25/2017 [facility] Allergies, Adverse Reactions, Alerts Allergy Allergy Status Severity Reaction(s) Onset Inactive Treating Comm ents Source Name Type Date Date Clinician Iodine Drug Active Hives Patients [facility] is [facility] I[facility]ide [facility]: pre Medical Containi 00 medicated Paty hare she can Products tolerate iodine injection s iodine iodine Active [facility] Social History Social Habit Start Date Stop Date Quantity Comments Source History [facility] Alcohol Std Drinks Med[facility] Center History [facility] Alcohol Binge Medical Magdaleno ter Sex Assigned At [facility] Tobacco use and 2018-10-09 2018-10-09 Never used [facility] St Kavita kes - exposure 00:00:00 00:00:00 [facility] Alcohol intake 2018-10-09 2018-10-[address] [facility] [address] Nayeli es - 00:00:00 00:00:00 non-drinker of Medical Ce nter alcohol (finding) History [facility] 2018-10-06 2018-10-[address] [facility] - Alcohol Frequency 00:00:00 00:00:00 [facility] Smoking Status Start Date Stop Date Source Social History [facility] Medications Ordered Filled Start Stop Current Ordering Indication Dosage Frequency Signature Comments Components Source Medication Medication Date Date Medication? Clinician (SIG) Name Name aspirin 81 2020- No 81mg QD Take [address] [facility] 8-16 -15 tablet (81 [facility] - tablet 00:00: 23:59 mg total) Medic al 00 :00 by mouth Center daily. pantoprazol 2020- No 20mg QD Take [address] [facility] e 8-15 -14 tablet (20 [facility] - (PROTONIX) 00:00: 23:59 mg total) M edical 20 MG 00 :00 by mouth Center tablet daily. atorvastati No Notes: Tonio donna n 08-27 (Same As: l 02:00: Lipitor) Acetaminoph No 1 - 2 tab, Memoria [...] tab, PO, l Tablet 19:05: BID, PRN [place] [Naprosyn] 00 for pain, X 7 day, # 14 tab, 0 Refill(s) ibuprofen No 800 mg = 1 Me moria 800 mg oral 6-28 tab, PO, l tablet 19:02: Q8H, PRN Pain, Take with food, X 5 day, # 15 tab, 0 Refill(s) Benadryl No 50 mg, Memoria 628 Route: l 17:59: IVP, ONCE, Dosing Weight 95.455, kg, Priority: STAT, Start date: 08/22/17 12:59:00 CDT, Stop date: 08/22/17 12:59:00 CDT GI cocktail No 30 mL, Tonio donna 08-22 Route: PO, l 16:24: Dosing [place] 00 Weight 95.455, kg, ONCE, STAT, Start date: 08/22/17 11:24:00 CDT, Stop date: 08/22/17 11:24:00 CDT Ketorolac No 4 days Memor ia 08-22 l 15:58: MEDICATION Kai 00 WASTE Product Size: 30 mg Product Wasted: ___ mg Saline No Notes: Memoria Flush 0.9% 08-22 (Same as: l 15:58: BD [place] 00 Posiflush) Vital Signs Vital Name Observation Time Observation Value Comments Source Systolic (mm Hg) 2017-08-26 14:38:00 Tonio rial Kai Diastolic (mm Hg) 2017-08-26 14:38:00 Mem orial [place] Respitory Rate 2017-08-26 14:38:00 Memori al [place] Heart Rate 2017-08-26 14:38:00 [facility] [place] Temperature Oral (F) 2017-08-26 14:38:00 98.4 F [facility] [place] Systolic (mm Hg) 2017-08-26 08:06:00 Tonio rial Kai Diastolic (mm Hg) 2017-08-26 08:06:00 Mem orial [place] Respitory Rate 2017-08-26 08:06:00 Memori al [place] Temperature Oral (F) 2017-08-26 08:06:00 98.5 F [facility] [place] Heart Rate 2017-08-26 08:06:00 [facility] [place] Systolic (mm Hg) 2017-08-26 05:16:00 Tonio rial [place] Diastolic (mm Hg) 2017-08-26 05:16:00 Mem orial [place] Respitory Rate 2017-08-26 05:16:00 Memori al [place] Heart Rate 2017-08-26 05:16:00 [facility] [place] Temperature Oral (F) 2017-08-26 05:16:00 98.8 F [facility] [place] Temperature Oral (F) 2017-08-22 19:36:00 98.3 F [facility] [place] Heart Rate 2017-08-22 19:36:00 [facility] [place] Respitory Rate 2017-08-22 19:36:00 Memori al [place] Systolic (mm Hg) 2017-08-22 19:36:00 Tonio rial [place] Diastolic (mm Hg) 2017-08-22 19:36:00 Mem orial [place] Weight 2017-08-22 15:58:00 [facility] [place] BMI Calculated 2017-08-22 15:58:00 Memori al [place] Systolic (mm Hg) 2017-08-22 15:58:00 Tonio rial [place] Diastolic (mm Hg) 2017-08-22 15:58:00 Mem orial [place] Respitory Rate 2017-08-22 15:58:00 Memori al [place] Height 2017-08-22 15:58:00 165.1 cm [facility] [place] Temperature Oral (F) 2017-08-22 15:58:00 98.1 F [facility] [place] Heart Rate 2017-08-22 15:58:00 [facility] [place] Procedures Procedure Date / Time Performed Performing Clinician Robson e Cholecystectomy [facility] Gastric bypass [facility] Hysterectomy [facility] Operation<sup>1</sup> [facility] Encounters Start End Encounter Admission Attending Care Care Encounter Source Date/Time Date/Time Type Type Clinicians Facility Department ID 2017-08-25 2017-08-26 Outpatient Tan, [facility] [id number] 21:14:00 10:53:00 Peter Marcelina 2017-08-22 2017-08-22 Outpatient Shakeel, [facility] [id number] 10:37:00 14:28:00 Sanchez 03 Shawn 2017-08-22 2017-08-22 Emergency E [facility] [id number] Memoria 10:37:00 10:37:00 l Kai [facility] l [facility] Results Test Description Test Time Test Comments Results Result Sour e Comments MYOCARD IMAGING, 2018-09-25 CAD risk, low FINAL REPORT PATIENT SINGLE, PHARM, 5 assymptomatic ID: [id number] SPECT 16:12:00 PROCEDURE: MYOCARDIAL PERFUSION SPECT IMAGING (Stress-Only)CPT CODE: [id number] INDICATION: Evaluate acute chest pain/discomfort CARDIOVASCULAR PROFILE:CAD [...] prior study for comparison. Signed: Karsten Mace Verified Date/Time: 10/09/2018 16:12:47 Reading Location: [facility] [address] [facility] [address] [facility] Quad Med Reading Room PERF 2018-09-25 Iodine contrast FINAL REPORT PATIENT IMAGING, PARTIC, 4 allergy ID: [id number] VENT 15:20:00 PROCEDURE: V/Q LUNG SCAN CPT CODE: [id number] INDICATION: Chest pain, elevated d-dimer PROTOCOL: 10.2 [...] pulmonary embolization is seen. Signed: Cyrus Gilbert Verified Date/Time: 10/08/2018 15:20:26 Reading Location: [facility] [address] [facility] [address] [facility] Reading Room D-DIMER 2018-10-07 14:47:00 Test [...] (test code = Nonreactive Nonreactive 420) VITAMIN [id number] 09:39:00 Test Item Value Reference Range Interpretation Comments VITAMIN B12 (BEAKER) (test code = > pg/mL 213-816 H 774) HEMOGLOBIN [id number] 08:49:00 Test Item Value Reference Range Interpretation Comments HEMOGLOBIN A1C (BEAKER) (test code = 5.5 % 4.3-6.1 368) C-REACTIVE [id number] 05:32:00 Test Item Value Reference Range Interpretation Comments C-REACTIVE PROTEIN (BEAKER) (test 0.18 mg/dL 0.00-0.50 code = 676) LIPID [id number] 05:08:00 Test Item Value Reference Range Interpretation [...] High 160-189 Very High >=190TSH/FREE T4 IF [id number] 05:08:00 Test Item Value Reference Range Interpretation Comments THYROID STIMULATING HORMONE 2.56 uIU/mL 0.35-4.94 (KAROLYN) (test code = 772) TROPONIN [id number] 04:57:00 Test Item Value Reference Range Interpretation Comments TROPONIN I (KAROLYN) (test code = 397) < ng/mL 0.00-0.03 [...] acidosis, acute neurological disease, and persistent tachyarrhythmia.TROPONIN [id number] 22:55:00 Test Item Value Reference Range Interpretation Comments TROPONIN I (KAROLYN) (test code = 397) < ng/mL 0.00-0.03 [...] acidosis, acute neurological disease, and persistent tachyarrhythmia.HEMOGLOBIN [id number] 14:45:00 Test Item Value Reference Range Interpretation Comments HEMOGLOBIN A1C (KAROLYN) (test code = 5.5 % 4.3-6.1 368) TROPONIN [id number] 14:15:00 Test Item Value Reference Range Interpretation Comments TROPONIN I (KAROLYN) (test code = 397) < ng/mL 0.00-0.03 [...] failure, acidosis, acute neurological disease, and persistent tachyarrhythmia.[id number] 14:09:00 Test Item Value Reference Range Interpretation Comments MAGNESIUM (KAROLYN) (test code = 1.8 mg/dL 1.6-2.6 627) BASIC METABOLIC [id number] 14:09:00 Test Item Value Reference Range Interpretation [...] NOT APPLICABLE FOR DIALYSIS PATIEN TS. LIPID [id number] 14:09:00 Test Item Value Reference Range Interpretation [...] Borderline 130-159 High 160-189 Very High >=190PROTHROMBIN TIME/[id number] 13:59:00 Test Item Value Reference Range Interpretation [...] INR is2.5-3.5 for patients wiht mechanical heart valves.[id number] 13:59:00 Test Item Value Reference Range Interpretation Comments PARTIAL THROMBOPLASTIN TIME 33.3 seconds 22.5-36.0 (BEAKER) (test code = 760) CBC W/PLT COUNT & AUTO [id number] 13:51:00 Test Item Value Reference Range Interpretation [...] PERCENT (BEAKER) (test code = 2801) CARDIAC [id number] 07:31:00<0.02[facility] ENZYMES 2017-08-26 07:31:0073[facility] HermannCHEM ATBAV9018-65-55 07:31:001.9[facility] SripxaeXDCGWUUUCCEY7288-74-14 07:31:0013.0[facility] IhxkdmiUPOEBOUYVOOT0575-07-69 07:31:003.3[facility] OeycgxeYZIRFXXDASFG4098-88-61 07:31:00 Test Item Value Reference Range Interpretation Comments B/C Ratio (test code = B/C Ratio) 17 1 6-25 Memorial IeszlhvNBWDVKZMKVMV3312-04-25 07:31:00 Test Item Value Reference Range Interpretation Comments A/G Ratio (test code = A/G Ratio) 0.9 1 0.7-1.6 Memorial StlbuwoHRTZSAXQLZFO4411-86-04 07:31:78112Raxfrvnd HermannELECTROLYTES 2017-08-26 07:31:0016[facility] HbuhdgxULCUNDVADPNM3840-62-55 07:31:0011[facility] UyzaeasENKECBYSBJRQ9671-38-58 07:31:000.8[facility] VwxpqcbBSLTCBDDBMNQ2012-04-65 07:31:0099[facility] VgzmtxiJUZPURFZFEAU1054-10-28 07:31:0085[facility] Kai WBNZSMKWYHXU7469-15-21 07:31:000.71[facility] PkowgasEBXIAQLGFGFV3400-37-07 07:31:004.0[facility] KlcswfnBWMFOEQVMHMT5756-87-26 07:31:006.4[facility] [place] MHKGUTROOHRJ2595-85-58 07:31:003.1[facility] XlxzxlpUGHZYARNAHSZ9811-80-78 07:31:0026[facility] QwuruqoOZVXUGGUZMWK6839-89-35 07:31:008.4[facility] [place] ABXAHAPSHXNL6629-58-58 07:31:19460Uoglmomf PtmmyslHCXGQVZPTUNO1642-11-73 07:31:57131Nypkfzdz XxytvxcJLTAUVVUEVGV4137-71-98 07:31:0012[facility] [place] GEUXSFSGDT8642-71-49 07:31:000.2[facility] WbavwmeODELRMCCHF6041-24-31 07:31:000.5 Memorial LrmltcnDMIIREATLF8365-78-86 07:31:0069.7[facility] HermannHEMATOLOGY 2017-08-26 07:31:0022.4[facility] QgceeldFDYXCDYCCQ6356-19-79 07:31:005.6[facility] DtxmspeMXQTRATOXA2656-02-05 07:31:006.6[facility] TcbjbewVFCSYXAPBQ6158-13-98 07:31:001.8[facility] UjguwrbYLHXLIOFGC5201-98-10 07:31:002.1[facility] [place] EZUVXASWTL9132-06-55 07:31:000.5[facility] NjdoaszWRGIHLVMGF7683-73-29 07:31:00 Test Item Value Reference Range Interpretation Comments PT (test code = PT) 13.3 s 12.0-14.7 Memorial NzzcympXVLSMTBEUF0334-14-32 07:31:00 Test Item Value Reference Range Interpretation Comments PTT (test code = PTT) 37.2 s 22.9-35.8 Memorial FregwkpMXHSSOBVUV8297-10-19 07:31:00 Test Item Value Reference Range Interpretation Comments INR (test code = INR) 1.01 1 0.85-1.17 Memorial ZzvhwjgRBPPCFRBCJ1362-70-11 07:31:008.3[facility] HermannHEMATOLOGY 2017-08-26 07:31:0038.7[facility] HlyymtzLXCIVKPAPT2644-05-04 07:31:009.5[facility] XldseciEFBBRFSZSY6545-92-51 07:31:004.55[facility] YvhsgssJJIPJRNCPX8628-31-08 07:31:0012.5[facility] HymfptlYSZHAPXJHZ0161-65-83 07:31:52849Xmqtkhqy [place] XPMHYMIBVW7213-87-95 07:31:00 Test Item Value Reference Range Interpretation Comments MCH (test code = MCH) 27.4 pg 27.0-31.0 Memorial AwshhefRSKAAYUIGC8858-62-23 07:31:0013.3[facility] HermannHEMATOLOGY 2017-08-26 07:31:0032.3[facility] AslnrssDHQLYAYAOX4287-61-60 07:31:0084.9[facility] HermannCARDIAC KFIOQUD6049-82-42 02:36:000.7[facility] HermannCARDIAC ENZYMES 2017-08-26 02:36:00 Test Item Value Reference Range Interpretation Comments CK MB Index (test code = CK MB Index) 0.8 1 <=2.5 [facility] HermannCARDIAC [id number] 02:36:00<0.02[facility] CARDIAC QFDGHHW0694-11-53 02:36:0087[facility] LfjtwxdOEJBUCDSTE6436-57-15 17:25:78238Ufbiqffc BesnydoNLBIHLXCQO3012-47-70 17:25:009.8[facility] [place] TLSQSWMYGE6877-60-46 17:25:00 Test Item Value Reference Range Interpretation Comments MCH (test code = MCH) 27.7 pg 27.0-31.0 Memorial ZbgrcauIWHEMOWTGD6311-37-77 17:25:0014.1[facility] HermannHEMATOLOGY 2017-08-22 17:25:0032.5[facility] ZvvezlsKEFSNBRTUW5387-02-31 17:25:004.83[facility] FgliqqqVNRGGJHPCP9785-98-75 17:25:0013.4[facility] TxjgcxqFBDEARXMXU6157-11-67 17:25:0011.2[facility] QvcbbpfJOWRWEJSXY5604-72-27 17:25:0085.2[facility] [place] IAUSSCMJCQ3889-16-17 17:25:0041.2[facility] StsrlnaLPVAMEWINX5124-70-94 17:25:00 Normal (08/22/17 12:25 PM)[facility] KupcwqxVINFWBYYBL5444-22-60 17:25:0081.2 [facility] HylomycNIGSZOCUUT5618-79-91 17:25:00Normal (08/22/17 12:25 PM)[facility] HiwvkexWRYMAHUOQY1918-79-15 17:25:000.3[facility] AarjkvmALMWWQGUZN9907-08-62 17:25:0013.4[facility] PfepwkiUBLQYDHJXL0346-54-50 17:25:004.8[facility] [place] VUFCBTDYRY2872-63-48 17:25:000.3[facility] UiedostTAJYBAUCJC8026-97-13 17:25:001.5 [facility] GftqimnWWXLMINPHR2591-50-33 17:25:009.1[facility] HermannHEMATOLOGY 2017-08-22 17:25:000.5[facility] HermannCARDIAC HOWFFQN5817-98-58 16:53:00 Test Item Value Reference Range Interpretation Comments CK MB Index (test code = CK MB Index) 0.5 1 <=2.5 [facility] HermannCARDIAC [id number] 16:53:16700Ogkksobh HermannCARDIAC AZPZYWX9507-89-63 16:53:000.9[facility] HermannCARDIAC HAWISIH3805-86-56 16:53:00 <0.02[facility] EkixcvnKDWRSNARVOWD5384-63-75 16:53:54843Hzpgmgyu [place] TFRTMOJLXZPL3413-68-00 16:53:005.1[facility] XjnvtvkACGYPKKTQAHE7438-94-20 16:53:08489Sfjpcggg LazftkeLDZKEJHOMUTL1437-65-68 16:53:008.6[facility] YJOLASWBWCVS4645-47-11 16:53:003.4[facility] OqzuhkkHBXQMMNNNAIP0369-06-46 16:53:00 Test Item Value Reference Range Interpretation Comments A/G Ratio (test code = A/G Ratio) 0.9 1 0.7-1.6 Memorial VuabojgGTAGTDZUDYMG7015-95-80 16:53:79345Jzffgrvn HermannELECTROLYTES 2017-08-22 16:53:007.3[facility] ZixwspiQSLLAWHZRIKF1195-64-12 16:53:98363Famfulbc GemclueHSCXKUQZRDUQ0076-28-09 16:53:0044[facility] VjidfwgVPZDVXYNPIJR6403-91-42 16:53:0022[facility] ZbnwgfbLDVQFYOTBCID4443-31-04 16:53:0024[facility] EIDRVKFTIZXP4973-96-13 16:53:007[facility] RpagjioMAWLISSQASLN4463-48-60 16:53:00 0.67[facility] UlufzuxTFLSXBVDHNRX5215-20-58 16:53:0089[facility] ENHFXRMQGGEL8806-58-36 16:53:003.9[facility] QqnquwjFCEUPUTSMHID5477-40-99 16:53:00 Test Item Value Reference Range Interpretation Comments B/C Ratio (test code = B/C Ratio) 10 1 6-25 Memorial JsxalpwOUORKPBGAXHB2900-87-96 16:53:001.1[facility] HermannELECTROLYTES 2017-08-22 16:53:0013.1[facility] [place]
--- NOTE | 2019-12-11 14:27 | ER ---
Nurse's Notes [facility] Name: Stephanie Verma Age: 44 yrs Sex: Female : 1975 Arrival Date: 12/11/2019 Time: 14:13 Bed Waiting Private MD: Diagnosis: Encounter for removal of sutures Presentation: 12/10 14:20 Chief complaint: Patient states: needs sutures removed from left hand that were placed sv Saturday. Coronavirus screen: Client denies travel out of the [place] in the last 14 days. At this time, the client does not indicate any symptoms associated with coronavirus-19. Ebola Screen: No symptoms or risks identified at this time. Risk Assessment: Do you want to hurt yourself or someone else? Patient reports no desire to harm self or others. Onset of symptoms was December 11, 2019. 14:20 Method Of Arrival: Ambulatory sv 14:20 Acuity: SEGUNDO 4 sv Triage Assessment: 14:21 General: Appears in no apparent distress. comfortable, well groomed, well developed, sv Behavior is calm, cooperative, appropriate for age. Pain: Denies pain. Neuro: Level of Consciousness is awake, alert, obeys commands, Oriented to person, place, time, situation, Gait is steady. Respiratory: Respiratory effort is even, unlabored. Historical: - Allergies: 14:21 Iodinated Contrast Media - IV Dye; sv - PMHx: 14:21 DVT; sv - PSHx: 14:21 Gastric Bypass; Hysterectomy; Tummy tuck; 2 Bowel obstruction repairs; sv - Immunization history:: Adult Immunizations. - Social history:: Smoking status: . Screenin:22 Abuse screen: Denies threats or abuse. Denies injuries from another. Nutritional sv screening: No deficits noted. Tuberculosis screening: No symptoms or risk factors identified. Fall Risk None identified. Assessment: 14:25 Reassessment: Patient appears in no apparent distress at this time. No changes from sv previously documented assessment. Patient and/or family updated on plan of care and expected duration. Pain level reassessed. Patient is alert, oriented x 3, equal unlabored respirations, skin warm/dry/pink. ED Course: 14:13 Patient arrived in ED. ag5 14:17 [facility] Ho[facility] FNP-C [facility] kb 14:17 Pascual Locke MD is Attending Physician. kb 14:21 Triage completed. sv 14:21 Arm band placed on. sv 14:22 Patient has correct armband on for positive identification. sv 14:22 No provider procedures requiring assistance completed. Patient did not have IV access sv during this emergency room visit. 14:28 Kristin Rehman, RN is Primary Nurse. sv Administered Medications: No medications were administered Outcome: 14:25 Discharged to home ambulatory. sv 14:25 Condition: stable 14:25 Discharge instructions given to patient, Instructed on discharge instructions, follow up and referral plans. Demonstrated understanding of instructions, follow-up care. 14:26 Discharge ordered by MD. kb 14:28 Patient left the ED. sv Signatures: Glory Hoang, AGENCY RECRUITER-C AGENCY RECRUITER-Ckb Kristin Rehman, RN RN sv Kg Trevino ag5
--- NOTE | 2019-12-11 14:27 | EDPHYS ---
Physician Documentation [facility] Name: Stephanie Verma Age: 44 yrs Sex: Female : 1975 Arrival Date: 12/11/2019 Time: 14:13 Bed Waiting Private MD: ED Physician Pascual Locke HPI: 12/10 15:25 This 44 yrs old Black Female presents to ER via Ambulatory with complaints of Suture kb Removal. 15:25 The patient has sutures on the heel of left hand. Previous treatment: The patient was kb initially treated 7 day(s) ago, the care was rendered at [facility], Treatment type: The patient's original treatment included sutures. Sutures/betty progress: The patient has no c/o's. The wound is well-healing with no redness, swelling, discharge, or dehiscence reported. The patient has not experienced similar symptoms in the past. The patient has been recently seen at the [facility] Emergency Department, last week. Historical: - Allergies: 14:21 Iodinated Contrast Media - IV Dye; sv - PMHx: 14:21 DVT; sv - PSHx: 14:21 Gastric Bypass; Hysterectomy; Tummy tuck; 2 Bowel obstruction repairs; sv - Immunization history:: Adult Immunizations. - Social history:: Smoking status: . ROS: 15:30 Constitutional: Negative for fever, chills, and weight loss, Cardiovascular: Negative kb for chest pain, palpitations, and edema, Respiratory: Negative for shortness of breath, cough, wheezing, and pleuritic chest pain, Abdomen/GI: Negative for abdominal pain, nausea, vomiting, diarrhea, and constipation, MS/Extremity: Negative for injury and deformity, Neuro: Negative for headache, weakness, numbness, tingling, and seizure. 15:30 Skin: Positive for of the heel of left hand, sutures in place. Exam: 15:31 Constitutional: This is a well developed, well nourished patient who is awake, alert, kb and in no acute distress. Head/Face: Normocephalic, atraumatic. Chest/axilla: Normal chest wall appearance and motion. Nontender with no deformity. No lesions are appreciated. Cardiovascular: Regular rate and rhythm with a normal S1 and S2. No gallops, murmurs, or rubs. Normal PMI, no JVD. No pulse deficits. Respiratory: Lungs have equal breath sounds bilaterally, clear to auscultation and percussion. No rales, rhonchi or wheezes noted. No increased work of breathing, no retractions or nasal flaring. Abdomen/GI: Soft, non-tender, with normal bowel sounds. No distension or tympany. No guarding or rebound. No evidence of tenderness throughout. MS/ Extremity: Pulses equal, no cyanosis. Neurovascular intact. Full, normal range of motion. Neuro: Awake and alert, GCS 15, oriented to person, place, time, and situation. Cranial nerves II-XII grossly intact. Motor strength 5/5 in all extremities. Sensory grossly intact. Cerebellar exam normal. Normal gait. 15:31 Skin: Wound recheck: Suture laceration closure: the wound is healing well, the edges are well approximated, no evidence of dehiscence, no drainage, no erythema, no swelling. Procedures: 15:30 Suture/Staple removal: Removed 7 sutures, from heel of left hand, site appears well kb healed, Patient tolerated well. MDM: 14:17 Patient medically screened. kb 15:25 Data reviewed: vital signs, nurses notes. Data interpreted: Pulse oximetry: on room air kb is 100 %. Interpretation: normal. Counseling: I had a detailed discussion with the patient and/or guardian regarding: the historical points, exam findings, and any diagnostic results supporting the discharge/admit diagnosis, the need for outpatient follow up, a family practitioner, to return to the emergency department if symptoms worsen or persist or if there are any questions or concerns that arise at home. Administered Medications: No medications were administered Disposition: 12/11 13:21 Co-signature as Attending Physician, Pascual Locke MD I agree with the assessment and kdr plan of care. Disposition: 12/11/19 14:26 Discharged to Home. Impression: Encounter for removal of sutures. - Condition is Stable. - Discharge Instructions: Suture Removal, Care After. - Medication Reconciliation Form, Thank You Letter, Antibiotic Education, Prescription Opioid Use form. - Follow up: Emergency Department; When: As needed; Reason: Worsening of condition. Follow up: Private Physician; When: 2 - 3 days; Reason: Recheck today's complaints, Continuance of care, Re-evaluation by your physician. Signatures: Glory Hoang FNP-C FNP-Kristin Bond, RN RN sv Pascual Locke MD MD kdr Corrections: (The following items were deleted from the chart) 12/10 14:28 14:26 12/11/2019 14:26 Discharged to Home. Impression: Encounter for removal of sv sutures. Condition is Stable. Forms are Medication Reconciliation Form, Thank You Letter, Antibiotic Education, Prescription Opioid Use. Follow up: Emergency Department; When: As needed; Reason: Worsening of condition. Follow up: Private Physician; When: 2 - 3 days; Reason: Recheck today's complaints, Continuance of care, Re-evaluation by your physician. kb
== END 2019-12-11 14:28 | disposition home or self-care (01) ==
LOC: ER 14:11
DX: Z48.02 Encounter for removal of sutures (principal)
CPT/HCPCS: 99281

== ENCOUNTER 2021-08-02 17:54 | Emergency (ER) | payer OTHER ==
--- OUTSIDE RECORDS SUMMARY | 2021-08-02 17:57 | XMS REPORT | Continuity of Care Document ---
:1975 Author Organization [facility] t Address [address] [place] [address] Care Team Providers Name Role Phone PCP, DOES NOT HAVE A Primary Care Physician Unavailable Markus REYNOSO Attending Clinician Unavailable Markus Reynoso APN Attending Clinician ANDREAS Attending Clinician Unavailable ANDREAS Admitting Clinician Unavailable Payers Payer Name Policy Type Policy Number Effective Date Expiration Date [id number] 2020 00:00:00 OUT OF STATE Problems Condition Condition Condition Status Onset Resolution Last Treating Co mments Source Name Details Category Date Date Treatment Clinician Date Weakness Weakness [facility] Chest pain Chest pain Disease Active [facility] Weakness Weakness Disease [facility] Medical extremity extremity 00 Cent er OTHER Diagnosis Active 2017-08-25 Mem oria 08-25 21:09:00 l OTHER 00:00: Kai 00 Active 08/25/2017 [facility] CHEST PAIN Diagnosis Active 2018-07-15 Memoria 08-22 07:16:00 l CHEST 00:00: [place] PAIN 00 Active 08/22/2017 [facility] Abdominal Abdominal Disease Active Uni vers pannus pannus 09-16 ity of 00:00: [place] 00 [facility] Gastric Gastric Disease Active Univers bypass bypass 08-05 [place] obesity 00 [place] Laparoscop Problem Active 2017-08-29 M emoria ic 09-28 01:51:10 l cholecyste 00:00: [place] n ctomy with Laparoscop 00 cholangiog ic alena cholecyste (procedure ctomy with ) cholangiog alena (procedure ) Active 09/28/2010 Problem 08/29/2017 [facility] Esophagoga Problem Active 2003-2017-08-29 M emoria strostomy, 1 01:51:10 l antesterna 00:00: [place] n l or Esophagoga 00 antethorac strostomy, ic antesterna (procedure l or ) antethorac ic (procedure ) Active 02/25/2003 Problem 08/29/2017 [facility] Abdominal Problem Active 2017-08-29 Me moria pain 01:51:10 l (finding) [place] Abdominal pain (finding) Active Problem 08/29/2017 [facility] CHEST Diagnosis Active 2017-08-27 Mem oria PAIN, 07:53:00 l UNSPECIFIE CHEST Anali nn D PAIN, UNSPECIFIE D Active [facility] OTHER Diagnosis Active 2017-08-25 Mem oria SPECIFIED 21:09:00 l DISORDERS OTHER Terry n OF WHITE SPECIFIED BLOOD DISORDERS OF WHITE BLOOD Active [facility] OTHER Diagnosis Active 2017-08-27 Mem oria FORMS OF 07:53:00 l STOMATITIS OTHER Anali nn FORMS OF STOMATITIS Active [facility] OTHER Diagnosis Active 2017-08-27 Mem oria SPECIFIED 07:53:00 l ABNORMAL OTHER Kai IMMUNOLOGI SPECIFIED FRANCESCA F ABNORMAL IMMUNOLOGI FRANCESCA F Active [facility] MULTIPLE Diagnosis Active 2017-08-27 M emoria MYELOMA 07:53:00 l NOT HAVING MULTIPLE He rmann ACHIEVED MYELOMA REM NOT HAVING ACHIEVED REM Active [facility] ESSENTIAL Diagnosis Active 2017-08-27 Memoria (PRIMARY) 07:53:00 l HYPERTENSI Terry n ON ESSENTIAL (PRIMARY) HYPERTENSI ON Active [facility] NEOPLASM Diagnosis Active 2017-08-27 M emoria RELATED 07:53:00 l PAIN NEOPLASM Terry n (ACUTE) RELATED (CHRONIC) PAIN (ACUTE) (CHRONIC) Active [facility] Multiple Problem 2017-08-29 Mem oria myeloma 01:51:10 l not having Multiple He rmann achieved myeloma remission not having achieved remission 08/29/2017 [facility] Essential Problem 2017-08-29 Me moria (primary) 01:51:10 l hypertensi Terry n on Essential (primary) hypertensi on 08/29/2017 [facility] Neoplasm Problem 2017-08-29 Mem oria related 01:51:10 l pain Neoplasm Terry n (acute) related (chronic) pain (acute) (chronic) 08/29/2017 [facility] History of Past Illness Condition Condition Condition Status Onset Resolution Last Treating Co mments Source Name Details Category Date Date Treatment Clinician Date Other Problem 2017-08-25 2017-08-25 M emoria chest pain 08-22 03:46:58 03:46:58 l Other 05:00: [place] chest pain 00 08/22/2017 08/25/2017 [facility] Allergies, Adverse Reactions, Alerts Allergy Allergy Status Severity Reaction(s) Onset Inactive Treating Comm ents Source Name Type Date Date Clinician DIPHENHY DRUG Active Hives 2020-02 Univers DRAMINE INGREDI 2-22 ity of HCL 00:00: [place] 00 [facility] Diphenhy Propensi Active Hives 2020-02 Univer s dramine ty to 2-22 ity of Hcl adverse 00:00: [place] reaction 00 Medical s Branch Iodine Drug Active Hives Patients [facility] I[facility]ide [facility] pre Medical Containi 00 medicated Cente r ng she can Products tolerate iodine injection s Iodine Propensi Active Hives Univers ty to 4-30 ity of adverse 00:00: [place] reaction 00 Medical s Branch IODINE DRUG Active Hives Univers INGREDI 4-30 ity of 00:00: [place] 00 [facility] iodine iodine Active Nelson Quinn Social History Social Habit Start Date Stop Date Quantity Comments Source History SDOH [facility] Alcohol Comment Medical C enter History SDOH [facility] Alcohol Std Medical Cente r Drinks History SDOH [facility] Alcohol Binge Medical [address] Exposure to Not sure University of SARS-CoV-2 [facility] (event) Branch Alcohol intake 2018-10-09 2018-10-[address] [facility] 00:[facility]00 00:00:00 non-drinker of Medical Ce nter alcohol (finding) Tobacco use and 2018-10-06 2018-10-[address] [facility] exposure 00:00:00 00:00:00 Medical Center History SDOH 2018-10-06 2018-10-[address] [facility] Alcohol Frequency 00:00:00 00:00:00 [facility] Sex Assigned At [address] [facility] 00:00:00 00:00:00 [facility] Smoking Status Start Date Stop Date Source Social History [facility] Medications Ordered Filled Start Stop Current Ordering Indication Dosage Frequency Signature Comments Components Source Medication Medication Date Date Medication? Clinician (SIG) Name Name acetamino 2020-02 650mg 650 mg, U nivers en 04-18 Oral, ity of (TYLENOL) 23:30: 22:35 ONCE, [place] tablet 650 00 :00 dose, On Medic al mg Wed Branch 02/15/21 at 1730, WILMER atorvastati No Notes: Tonio donna n 08-27 [...] = 1 Mem oria 500 MG Oral 08-22 tab, PO, l Tablet 19:05: BID, PRN Kai [Naprosyn] 00 for pain, X 7 day, # 14 tab, 0 Refill(s) ibuprofen No 800 mg = 1 Me moria 800 mg oral 08-22 tab, PO, l tablet 19:02: Q8H, PRN [...] days Memor ia 08-22 l 15:58: MEDICATION WASTE Product Size: 30 mg Product Wasted: ___ mg Saline No Notes: Memoria Flush 0.9% 08-22 (Same as: l 15:58: BD Posiflush) MULTIVITS,C Yes Take by Un janelle A,MINERALS/ 09-16 mouth. ity of IRON/FA 14:24: [place] (ONE-A-DAY 10 Medical WOMENS Branch FORMULA ORAL) Yes Take by Unive rs VIT 15/IRON 09-16 mouth. ity of CB/FA/DSS 14:24: [place] ( 10 Medical AD ORAL) [place] Vital Signs Vital Name Observation Time Observation Value Comments Source Systolic blood 2021-02-15 23:30:00 130 mm[Hg] Univer sity of pressure [facility] Diastolic blood 2021-02-15 23:30:00 89 mm[Hg] Unive rsity of pressure [facility] Heart rate 2021-02-15 23:30:00 84 /min [facility] Respiratory rate 2021-02-15 23:30:00 20 /min [facility] Oxygen saturation in 2021-02-15 23:30:00 96 /min [facility] Arterial blood by [facility] Pulse oximetry [place] Body temperature 2021-02-15 22:18:00 36.67 Rosy [facility] Body weight 2021-02-15 22:18:00 129.275 kg [facility] BMI 2021-02-15 22:18:00 47.43 kg/m2 [facility] Systolic (mm Hg) 2017-08-26 14:38:00 Tonio rial Kai Diastolic (mm Hg) 2017-08-26 14:38:00 Mem orial [place] Respitory Rate 2017-08-26 14:38:00 Memori al [place] Heart Rate 2017-08-26 14:38:00 [facility] Temperature Oral (F) 2017-08-26 14:38:00 98.4 F [facility] [place] Systolic (mm Hg) 2017-08-26 08:06:00 Tonio rial [place] Diastolic (mm Hg) 2017-08-26 08:06:00 Mem orial [place] Respitory Rate 2017-08-26 08:06:00 Memori al [place] Temperature Oral (F) 2017-08-26 08:06:00 98.5 F [facility] [place] Heart Rate 2017-08-26 08:06:00 [facility] [place] Systolic (mm Hg) 2017-08-26 05:16:00 Tonio rial [place] Diastolic (mm Hg) 2017-08-26 05:16:00 Mem orial [place] Respitory Rate 2017-08-26 05:16:00 Memori al [place] Heart Rate 2017-08-26 05:16:00 [facility] [place] Temperature Oral (F) 2017-08-26 05:16:00 98.8 F [facility] [place] Temperature Oral (F) 2017-08-22 19:36:00 98.3 F [facility] [place] Heart Rate 2017-08-22 19:36:00 [facility] [place] Respitory Rate 2017-08-22 19:36:00 Memori al [place] Systolic (mm Hg) 2017-08-22 19:36:00 Tonio rial [place] Diastolic (mm Hg) 2017-08-22 19:36:00 Mem orial [place] Weight 2017-08-22 15:58:00 [facility] [place] BMI Calculated 2017-08-22 15:58:00 Memori al [place] Systolic (mm Hg) 2017-08-22 15:58:00 Tonio rial [place] Diastolic (mm Hg) 2017-08-22 15:58:00 Mem orial [place] Respitory Rate 2017-08-22 15:58:00 Memori al [place] Height 2017-08-22 15:58:00 165.1 cm [facility] Temperature Oral (F) 2017-08-22 15:58:00 98.1 F [facility] [place] Heart Rate 2017-08-22 15:58:00 [facility] [place] Procedures Procedure Date / Time Performing Clinician Source Performed URINALYSIS 2021-02-15 22:35:00 Rodriguez Reynoso [facility] POCT TEST 2021-02-15 22:35:00 Rodriguez Reynoso [facility] COVID-19 (ID NOW RAPID 2021-02-15 22:35:00 Rodriguez Reynoso [facility] TESTING) Medical Branch CONSENT/REFUSAL FOR 2021-02-15 22:20:42 Doctor Unassigned, [facility] DIAGNOSIS AND TREATMENT [place] [facility] Cholecystectomy [facility] [place] Gastric bypass [facility] [place] Hysterectomy [facility] Kai Operation<sup>1</sup> [facility] Plan of Care Planned Activity Planned Date Details Comments Source Future Scheduled 2021-10-[address] [facility] Test 00:00:00 (procedure) [code = [facility] [id number]] Future Scheduled 2020-10-[address] [facility] Test 00:00:00 (#1) [code = [facility] INFLUENZA VACCINE (#1)] Future Scheduled 2020-02-[address] [facility] Test 00:00:00 (12+) [code = Medical Center DEPRESSION SCREENING (12+)] Future Scheduled [address] [facility] Test 00:00:00 malignant neoplasm of Medica l Center cervix (procedure) [code = 052643958] Future Scheduled 1996-01-28 DTAP/TDAP/TD VACCINES [facility] Test 00:00:00 (1 - Tdap) [code = Medical C enter DTAP/TDAP/TD VACCINES (1 - Tdap)] Future Scheduled 1995 HEPATITIS C [facility]CRE[facility]ING [facility] Test 00:00:00 [code = HEPATITIS C Medical Center SCREENING] Future Scheduled 1989 COVID-19 VACCINE (1) [facility] Test 00:00:00 [code = COVID-[address] VACCINE (1)] Encounters Start End Encounter Admission Attending Care Care Encounter Source Date/Time Date/Time Type Type Clinicians Facility Department ID 2021-02-15 2021-02-15 Emergency X [facility] [id number] Univers 16:20:00 17:59:00 RODRIGUEZ ity of [facility] 2021-02-15 2021-02-15 Emergency Reynoso, TRAUMA [id number] Univers 16:20:00 17:59:00 [facility] [id number] [id number] [id number] [address] 2017-08-26 2017-08-26 Observatio [facility] [id number] Memoria 02:14:00 15:53:00 jing Quinn 82 l [facility] 2017-08-22 2017-08-22 Emergency [facility] [id number] Memoria 15:37:00 19:28:00 levi Quinn 03 l [facility] 2017-08-22 2017-08-22 Emergency E [facility] [id number] Memoria 10:37:00 10:37:00 [facility] Test Description Test Time Test Comments Results Result Comments Source POCT TEST 2021-02-15 22:35:00 Test Item Value Reference Range Interpretation Comme nts POCT PREG (test code = 1605) negative On board controls acceptable with C Line (test code = 3574) present POCT PREG LOT # (test code = 3575) [id number] POCT PREG TEST DATE (test code = 3576) 03/27/2022 Lab Interpretation (test code = 08002-6) Normal [facility] PH[facility], SPECT 2018-10-09 16:12:00CAD risk, low assymptomaticFINAL REPORT PROCEDURE: MYOCARDIAL PERFUSION SPECT IMAGING (Stress-Only)CPT CODE: 94228 INDICATION: Evaluate acute chest pain/discomfort CARDIOVASCULAR PROFILE:CAD History: NoneSymptoms: Chest painRisk Factors: Hypertension, obesityBMI: 41.2Medications: Aspirin, atorvastatin STRESS PROTOCOL:Pharmacologic stress was achieved with a 10-second intravenous infusion of regadenoson 0.4 mg. The radiopharmaceutical was administered 30 seconds after the start of the regadenoson infusion. IMAGING PROTOCOL:30.4 mCi of Tc-99m sestamibi was injected intravenously at peak stress, and gatedSPECT images were obtained. Image quality is good. REST FINDINGS:HR: 49/minBP: 103/61 mmHgPrelim. EKG: Sinus bradycardia, PVCs. STRESS FINDINGS:HR: 105/min (58% of MPHR)BP: 142/94 mmHgPrelim. EKG: No is chemic changes.Symptoms: Chest pain/discomfort 10 out of 10, nausea, flushing, dyspnea (treated [id number] mg of IV Aminophyllin). Perfusion: Normal.Wall Motion: Normal (LVEF 55%).LV Volume: Normal.RV Volume: Normal. IMPRESSION:1. Normal study.2. Normal myocardial perfusion. 3. Normal LVEF with stress. 4. Normal extracardiac tracer distribution.5. There is no prior study for comparison. Signed: Karsten Merchant MDReport Verified Date/Time: 10/09/2018 16:12:47 Reading Location: [address] Reading Room PUL PERF IMAGING, PARTIC, VENT 2018-10-08 15:20:00Iodine contrast allergyFINAL REPORT PROCEDURE: V/Q LUNG SCAN CPT CODE: [id number] INDICATION: Chest pain, elevated d-dimer PROTOCOL: 10.2 [...] MDReport Verified Date/Time: 10/08/2018 15:20:26 Reading Location: [address] Reading Room -[id number] 14:47:00 Test Item Value Reference Range Interpretation Comments D-DIMER QUANTITATIVE (BEAKER) 0.50 MG/L FEU <0.50 H (test code = 671) Intended Use: The D-Dimer Assay can be [...] (test code = Nonreactive Nonreactive 420) VITAMIN [id number] 09:39:00 Test Item Value Reference Range Interpretation Comments VITAMIN B12 (BEAKER) (test code = > pg/mL 213-816 H 774) HEMOGLOBIN [id number] 08:49:00 Test Item Value Reference Range Interpretation Comments HEMOGLOBIN A1C (BEAKER) (test code = 5.5 % 4.3-6.1 368) C-REACTIVE [id number] 05:32:00 Test Item Value Reference Range Interpretation Comments C-REACTIVE PROTEIN (BEAKER) (test 0.18 mg/dL 0.00-0.50 code = 676) LIPID [id number] 05:08:00 Test Item Value Reference Range Interpretation [...] High 160-189 Very High >=190TSH/FREE T4 IF [id number] 05:08:00 Test Item Value Reference Range Interpretation Comments THYROID STIMULATING HORMONE 2.56 uIU/mL 0.35-4.94 (BEAKER) (test code = 772) TROPONIN [id number] 04:57:00 Test Item Value Reference Range Interpretation [...] acidosis, acute neurological disease, and persistent tachyarrhythmia.TROPONIN [id number] 22:55:00 Test Item Value Reference Range Interpretation [...] acidosis, acute neurological disease, and persistent tachyarrhythmia.HEMOGLOBIN [id number] 14:45:00 Test Item Value Reference Range Interpretation Comments HEMOGLOBIN A1C (BEAKER) (test code = 5.5 % 4.3-6.1 368) TROPONIN [id number] 14:15:00 Test Item Value Reference Range Interpretation [...] failure, acidosis, acute neurological disease, and persistent tachyarrhythmia.[id number] 14:09:00 Test Item Value Reference Range Interpretation Comments MAGNESIUM (BEAKER) (test code = 1.8 mg/dL 1.6-2.6 627) BASIC METABOLIC [id number] 14:09:00 Test Item Value Reference Range Interpretation [...] NOT APPLICABLE FOR DIALYSIS PATIEN TS. LIPID [id number] 14:09:00 Test Item Value Reference Range Interpretation [...] Borderline 130-159 High 160-189 Very High >=190PROTHROMBIN TIME/[id number] 13:59:00 Test Item Value Reference Range Interpretation [...] INR is2.5-3.5 for patients wiht mechanical heart valves.[id number] 13:59:00 Test Item Value Reference Range Interpretation Comments PARTIAL THROMBOPLASTIN TIME 33.3 seconds 22.5-36.0 (BEAKER) (test code = 760) CBC W/PLT COUNT & AUTO [id number] 13:51:00 Test Item Value Reference Range Interpretation [...] 0-1 PERCENT (BEAKER) (test code = 2801) [id number] 07:31:00 Test Item Value Reference Range Interpretation Comments Basophils (test code = 0.5 See_Comment [Aut omated message] The Basophils) system which ge nerated this result tra nsmitted reference range : <=1.0. The reference r mariana was not used to int erpret this result as normal/abnormal . [facility]EDMP[facility]796-[facility] 07:31:00 Test Item Value Reference Range Interpretation Comments PT (test code = PT) 13.3 s 12.0-14.7 [facility]iscoOlapjsfIKUUGQNGQT8560-22-22 07:31:00 Test Item Value Reference Range Interpretation Comments PTT (test code = PTT) 37.2 s 22.9-35.8 [id number] 07:31:00 Test Item Value Reference Range Interpretation Comments INR (test code = INR) 1.01 1 0.85-1.17 [id number] 07:31:00 Test Item Value Reference Range Interpretation Comments MPV (test code = MPV) 8.3 7.4-10.4 [facility][id number] 07:31:00 Test Item Value Reference Range Interpretation Comments Hct (test code = Hct) 38.7 36.0-48.0 [facility]is[id number] 07:31:00 Test Item Value Reference Range Interpretation Comments WBC (test code = WBC) 9.5 3.7-10.4 [id number] 07:31:00 Test Item Value Reference Range Interpretation Comments RBC (test code = RBC) 4.55 4.20-5.40 [id number] 07:31:00 Test Item Value Reference Range Interpretation Comments Hgb (test code = Hgb) 12.5 12.0-16.0 [id number] 07:31:00 Test Item Value Reference Range Interpretation Comments Platelet (test code = Platelet) 216 133-450 [facility]iscoUzrtsxaQYIGWNTYGI1955-21-18 07:31:00 Test Item Value Reference Range Interpretation Comments MCH (test code = MCH) 27.4 pg 27.0-31.0 [facility]iscoRgvimynETMGVVRNCW5431-51-16 07:31:00 Test Item Value Reference Range Interpretation Comments RDW (test code = RDW) 13.3 11.5-14.5 [facility]is[id number] 07:31:00 Test Item Value Reference Range Interpretation Comments MCHC (test code = MCHC) 32.3 32.0-36.0 [id number] 07:31:00 Test Item Value Reference Range Interpretation Comments MCV (test code = MCV) 84.9 80.0-98.0 [facility] [id number] 07:31:00 Test Item Value Reference Range Interpretation Comments Troponin-I (test code no gt See_Comment [Auto mated message] The = Troponin-I) system which g enerated this result transmit tejal reference range : <=0.40. The reference r mariana was not used to interpr et this result as wilma l/abnormal. [facility]ley[facility]ARDIAC [id number] 07:31:00 Test Item Value Reference Range Interpretation Comments Total CK (test code = Total CK) 73 12-191 [facility] [id number] 07:31:00 Test Item Value Reference Range Interpretation Comments Magnesium Lvl (test code = Magnesium 1.9 1.8-2.4 Lvl) [id number] 07:31:00 Test Item Value Reference Range Interpretation Comments AGAP (test code = AGAP) 13.0 10.0-20.0 [facility] HospitalRfgydpzLKRXPCQVNKLE1818-19-29 07:31:00 Test Item Value Reference Range Interpretation Comments Globulin (test code = Globulin) 3.3 2.7-4.2 [facility] So[id number] 07:31:00 Test Item Value Reference Range Interpretation Comments B/C Ratio (test code = B/C Ratio) 17 1 6-25 [facility] SouthPtxckqxGXYLRUEGKQQJ5032-94-65 07:31:00 Test Item Value Reference Range Interpretation Comments A/G Ratio (test code = A/G Ratio) 0.9 1 0.7-1.6 [facility] SouthUatynosUDJPPVKWESIN0740-89-26 07:31:00 Test Item Value Reference Range Interpretation Comments eGFR (test code = eGFR) 123 [facility] Hospital[id number] 07:31:00 Test Item Value Reference Range Interpretation Comments ALT (test code = ALT) 16 See_Comment [Auto mated message] The system which ge nerated this result transmit tejal reference range : <=65. The reference range was not used to interpr et this result as wilma l/abnormal. [facility] SouthObrjwqsRKDHCJZQLFZR1672-50-58 07:31:00 Test Item Value Reference Range Interpretation Comments AST (test code = AST) 11 See_Comment [Auto mated message] The system which ge nerated this result transmit tejal reference range : <=37. The reference range was not used to interpr et this result as wilma l/abnormal. [facility] Hospi[id number] 07:31:00 Test Item Value Reference Range Interpretation Comments Bili Total (test code = Bili Total) 0.8 0.2-1.3 [facility] Hospi[id number] 07:31:00 Test Item Value Reference Range Interpretation Comments Alk Phos (test code = Alk Phos) 99 39-136 [facility] Hosp[id number] 07:31:00 Test Item Value Reference Range Interpretation Comments Glucose Lvl (test code = Glucose Lvl) 85 70-99 [facility] Hosp[id number] 07:31:00 Test Item Value Reference Range Interpretation Comments Creatinine Lvl (test code = Creatinine 0.71 0.50-1.40 Lvl) [facility] Hospital[id number] 07:31:00 Test Item Value Reference Range Interpretation Comments Potassium Lvl (test code = Potassium 4.0 3.5-5.1 Lvl) [facility] HospitalIwwfwioQYLUPBYPKEDF1469-28-77 07:31:00 Test Item Value Reference Range Interpretation Comments Total Protein (test code = Total 6.4 6.4-8.4 Protein) [facility] Hos[id number] 07:31:00 Test Item Value Reference Range Interpretation Comments Albumin Lvl (test code = Albumin Lvl) 3.1 3.5-5.0 [facility] HospitalQddporuKPQTSOKQPVTR6305-05-16 07:31:00 Test Item Value Reference Range Interpretation Comments CO2 (test code = CO2) 26 24-32 [facility] Hospital[id number] 07:31:00 Test Item Value Reference Range Interpretation Comments Calcium Lvl (test code = Calcium Lvl) 8.4 8.5-10.5 [facility] HospitalCzczldhAHFZUBLWFNLW8238-02-14 07:31:00 Test Item Value Reference Range Interpretation Comments Chloride Lvl (test code = Chloride Lvl) 108 95-109 [facility] HospitalEgooczvWKOQIIQIWRUM0958-85-44 07:31:00 Test Item Value Reference Range Interpretation Comments Sodium Lvl (test code = Sodium Lvl) 143 135-145 [facility] HospitalXujctlgWHASLILWKWZV5946-92-67 07:31:00 Test Item Value Reference Range Interpretation Comments BUN (test code = BUN) 12 7-22 [facility]is[id number] 07:31:00 Test Item Value Reference Range Interpretation Comments Eosinophils # (test code 0.2 See_Comment [A utomated message] The = Eosinophils #) system whic h generated this result tra nsmitted reference range : <=0.5. The reference r mariana was not used to int erpret this result as normal/abnormal . [id number] 07:31:00 Test Item Value Reference Range Interpretation Comments Monocytes # (test code 0.5 See_Comment [Aut omated message] The = Monocytes #) system which generated this result tra nsmitted reference range : <=0.8. The reference r mariana was not used to int erpret this result as normal/abnormal . [place] [facility]iscoIvnsfhsUGTWMADYRV2570-15-05 07:31:00 Test Item Value Reference Range Interpretation Comments Segs (test code = Segs) 69.7 45.0-75.0 [id number] 07:31:00 Test Item Value Reference Range Interpretation Comments Lymphocytes (test code = Lymphocytes) 22.4 20.0-40.0 [facility]LpcrklrKBYYTHROLF3428-73-71 07:31:00 Test Item Value Reference Range Interpretation Comments Monocytes (test code = Monocytes) 5.6 2.0-12.0 [facility] CenterSpekdxqGWTCNWAOES8175-22-12 07:31:00 Test Item Value Reference Range Interpretation Comments Segs-Bands # (test code = Segs-Bands #) 6.6 1.5-8.1 [facility]EkxwkfgVUCNRZAAZU9903-91-45 07:31:00 Test Item Value Reference Range Interpretation Comments Eosinophils (test code = 1.8 See_Comment [A utomated message] The Eosinophils) system which ge nerated this result tra nsmitted reference range : <=4.0. The reference r mariana was not used to int erpret this result as normal/abnormal . [facility] CenterFvaybzfFQUVHIBZOB1523-60-20 07:31:00 Test Item Value Reference Range Interpretation Comments Lymphocytes # (test code = Lymphocytes 2.1 1.0-5.5 #) [facility] [id number] 02:36:00 Test Item Value Reference Range Interpretation Comments CK MB (test code = CK MB) 0.7 0.5-3.6 [facility]annCARDIAC [id number] 02:36:00 Test Item Value Reference Range Interpretation Comments CK MB Index (test 0.8 1 See_Comment [Automate d message] The code = CK MB Index) [facility] generated this result transmit tejal reference range : <=2.5. The reference range was not used to interpr et this result as wilma l/abnormal. [facility] SouthHypertension DiagnosticsUOFL [facility] [id number] 02:36:00 Test Item Value Reference Range Interpretation Comments Troponin-I (test code no gt See_Comment [Auto mated message] The = Troponin-I) system which g enerated this result transmit tejal reference range : <=0.40. The reference r mariana was not used to interpr et this result as wilma l/abnormal. [facility] SouthHypertension DiagnosticsUOFL [facility] [id number] 02:36:00 Test Item Value Reference Range Interpretation Comments Total CK (test code = Total CK) 87 12-191 [facility] SouthIttghuqNOKVIYGAMQ0754-46-48 17:25:00 Test Item Value Reference Range Interpretation Comments Segs-Bands # (test code = Segs-Bands #) 9.1 1.5-8.1 [facility] SouthZkydalhJMZZKQMEXC9944-03-49 17:25:00 Test Item Value Reference Range Interpretation Comments Monocytes # (test code 0.5 See_Comment [Aut omated message] The = Monocytes #) system which generated this result tra nsmitted reference range : <=0.8. The reference r mariana was not used to int erpret this result as normal/abnormal . [facility] SouthQerhisfPPGCNVUQHB2946-60-43 17:25:00 Test Item Value Reference Range Interpretation Comments Platelet (test code = Platelet) 146 133-450 [facility] SouthTlftauxNQOUOEKIGR7550-08-34 17:25:00 Test Item Value Reference Range Interpretation Comments MPV (test code = MPV) 9.8 7.4-10.4 [facility] SouthVrikpcaBWJAMUORVA6490-59-92 17:25:00 Test Item Value Reference Range Interpretation Comments MCH (test code = MCH) 27.7 pg 27.0-31.0 [facility] SouthWazwhmvQANZTGGUDB6077-88-22 17:25:00 Test Item Value Reference Range Interpretation Comments RDW (test code = RDW) 14.1 11.5-14.5 [facility]LmwmcmmKTVWDUPQQG3479-53-75 17:25:00 Test Item Value Reference Range Interpretation Comments MCHC (test code = MCHC) 32.5 32.0-36.0 [facility]LzkjreqWTSZFUAZZO3908-48-42 17:25:00 Test Item Value Reference Range Interpretation Comments RBC (test code = RBC) 4.83 4.20-5.40 [facility]iscoEreoisvYVEJECBCHY0713-28-68 17:25:00 Test Item Value Reference Range Interpretation Comments Hgb (test code = Hgb) 13.4 12.0-16.0 [facility]iscoAymmbtfSWHVGOSICR8191-71-56 17:25:00 Test Item Value Reference Range Interpretation Comments WBC (test code = WBC) 11.2 3.7-10.4 [facility]iscoElgurhcPDMEMPLJRD1540-20-44 17:25:00 Test Item Value Reference Range Interpretation Comments MCV (test code = MCV) 85.2 80.0-98.0 [facility]iscoLtqhuonPYLYBNYOGY3895-05-07 17:25:00 Test Item Value Reference Range Interpretation Comments Hct (test code = Hct) 41.2 36.0-48.0 [facility]iscoKijncvcNNBGIDZCAK3913-94-76 17:25:00 Test Item Value Reference Range Interpretation Comments RBC Morph (test code = Normal (08/22/17 12:25 RBC Morph) PM) [facility]iscoOiucltmLCFOWXNLZT0695-38-51 17:25:00 Test Item Value Reference Range Interpretation Comments Segs (test code = Segs) 81.2 45.0-75.0 [facility]iscoZfecebpZNVXAQARAW0405-03-24 17:25:00 Test Item Value Reference Range Interpretation Comments Plt Morph (test code = Normal (08/22/17 12:25 Plt Morph) PM) [facility]iscoEhoxtlpYKOXVXPLOZ6646-81-75 17:25:00 Test Item Value Reference Range Interpretation Comments Eosinophils (test code = 0.3 See_Comment [A utomated message] The Eosinophils) system which ge nerated this result tra nsmitted reference range : <=4.0. The reference r mariana was not used to int erpret this result as normal/abnormal . [facility]iscoHmmviggQRGGXDQYTF4251-10-40 17:25:00 Test Item Value Reference Range Interpretation Comments Lymphocytes (test code = Lymphocytes) 13.4 20.0-40.0 [facility]iscoWkyxcszZRKPWZAJQJ4467-98-41 17:25:00 Test Item Value Reference Range Interpretation Comments Monocytes (test code = Monocytes) 4.8 2.0-12.0 [facility] YuvhfxzXULSCDQAYS5604-26-79 17:25:00 Test Item Value Reference Range Interpretation Comments Basophils (test code = 0.3 See_Comment [Aut omated message] The Basophils) system which ge nerated this result tra nsmitted reference range : <=1.0. The reference r mariana was not used to int erpret this result as normal/abnormal . [facility] SouthEimtngmWOBSVESKVT8764-12-72 17:25:00 Test Item Value Reference Range Interpretation Comments Lymphocytes # (test code = Lymphocytes 1.5 1.0-5.5 #) [facility] SouthYangaroo2018-06-28 16:53:00 Test Item Value Reference Range Interpretation Comments CK MB Index (test 0.5 1 See_Comment [Automate d message] The code = CK MB Index) [facility] generated this result transmit tejal reference range : <=2.5. The reference range was not used to interpr et this result as wilma l/abnormal. [facility] [employer]2018-06-28 16:53:00 Test Item Value Reference Range Interpretation Comments Total CK (test code = Total CK) 176 12-191 [facility] SouthYangaroo2018-06-28 16:53:00 Test Item Value Reference Range Interpretation Comments CK MB (test code = CK MB) 0.9 0.5-3.6 [facility] SouthYangaroo2018-06-28 16:53:00 Test Item Value Reference Range Interpretation Comments Troponin-I (test code no gt See_Comment [Auto mated message] The = Troponin-I) system which g enerated this result transmit tejal reference range : <=0.40. The reference r mariana was not used to interpr et this result as wilma l/abnormal. [facility] ZfhdzyrPVGAOKFBSHUS6729-31-27 16:53:00 Test Item Value Reference Range Interpretation Comments Sodium Lvl (test code = Sodium Lvl) 140 135-145 [facility] SouthTpuzcvwBPXDJTKRCZAP6180-62-62 16:53:00 Test Item Value Reference Range Interpretation Comments Potassium Lvl (test code = Potassium 5.1 3.5-5.1 Lvl) [facility]IhfhpyjCRDAXXGTRLZV2654-08-02 16:53:00 Test Item Value Reference Range Interpretation Comments Chloride Lvl (test code = Chloride Lvl) 108 95-109 [facility] HospitalIkbovzeZRXQVJABYJHO7436-22-82 16:53:00 Test Item Value Reference Range Interpretation Comments Calcium Lvl (test code = Calcium Lvl) 8.6 8.5-10.5 [facility] HospitalRnttrvfSNNDQGBAPXUH7738-82-84 16:53:00 Test Item Value Reference Range Interpretation Comments Albumin Lvl (test code = Albumin Lvl) 3.4 3.5-5.0 [facility] HospitalEcpdfdbHBLKITYANLLB2048-28-87 16:53:00 Test Item Value Reference Range Interpretation Comments A/G Ratio (test code = A/G Ratio) 0.9 1 0.7-1.6 [facility] HospitalCpziqboHQEOKQGKNWOD3966-88-57 16:53:00 Test Item Value Reference Range Interpretation Comments eGFR (test code = eGFR) 127 [facility] HospitalQhjiejpOOVGZVZBSUGR3638-68-26 16:53:00 Test Item Value Reference Range Interpretation Comments Total Protein (test code = Total 7.3 6.4-8.4 Protein) [facility] HospitalVwiqikkUVHOOXYLTEWU6526-36-74 16:53:00 Test Item Value Reference Range Interpretation Comments Alk Phos (test code = Alk Phos) 107 39-136 [facility] HospitalAqkkoagRALHBMYSZEMY2726-86-27 16:53:00 Test Item Value Reference Range Interpretation Comments AST (test code = AST) 44 See_Comment [Auto mated message] The system which ge nerated this result transmit tejal reference range : <=37. The reference range was not used to interpr et this result as wilma l/abnormal. [facility] HospitalUrclsdbKUWWZDBISFHK9500-12-18 16:53:00 Test Item Value Reference Range Interpretation Comments ALT (test code = ALT) 22 See_Comment [Auto mated message] The system which ge nerated this result transmit tejal reference range : <=65. The reference range was not used to interpr et this result as wilma l/abnormal. [facility] HospitalVoiseeuRWNOKJHCEZNN5677-95-13 16:53:00 Test Item Value Reference Range Interpretation Comments CO2 (test code = CO2) 24 24-32 [facility] HospitalFdzqnolMSNULFXRTIBV3372-09-25 16:53:00 Test Item Value Reference Range Interpretation Comments BUN (test code = BUN) 7 7-22 [facility] HospitalKvxrsrbVYSWJALUKKUV0070-98-16 16:53:00 Test Item Value Reference Range Interpretation Comments Creatinine Lvl (test code = Creatinine 0.67 0.50-1.40 Lvl) [facility] HospitalCgmtdczIZBZOUSVSQPE3134-86-22 16:53:00 Test Item Value Reference Range Interpretation Comments Glucose Lvl (test code = Glucose Lvl) 89 70-99 [facility] HospitalNrclqrqEOZDXSWMPRNI0359-38-96 16:53:00 Test Item Value Reference Range Interpretation Comments Globulin (test code = Globulin) 3.9 2.7-4.2 [facility] HospitalPmkyxswSSHQPYCUQKJP3374-54-47 16:53:00 Test Item Value Reference Range Interpretation Comments B/C Ratio (test code = B/C Ratio) 10 1 6-25 [facility] HospitalNyhauntDACQHPDAMFBJ1095-45-88 16:53:00 Test Item Value Reference Range Interpretation Comments Bili Total (test code = Bili Total) 1.1 0.2-1.3 [facility] HospitalVglnsneQJWPNLOGJVEY8305-89-44 16:53:00 Test Item Value Reference Range Interpretation Comments AGAP (test code = AGAP) 13.1 10.0-20.0 [facility]
[2021-08-02] MEDS ORDERED: ONDANSETRON 4 MG/2 ML VIAL ONE (18:23)
[2021-08-02] MEDS ORDERED: MORPHINE 4 MG/ML SYR ONE (18:23)
[2021-08-02 18:35] LABS: Absolute Lymphocytes (CBC) 1.7 K/uL (0.7-4.9); Hematocrit 39.6 % (36.0-45.0); Lymphocytes % 17.1 % (15.3-44.8); MPV 8.2 fL (7.6-11.3); RBC Red Blood Cell Count 4.87 M/uL (3.86-4.86)
[2021-08-02 18:56] LABS: Potassium 3.9 mmol/L (3.5-5.1)
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
[2021-08-02 21:25] VITALS: TEMP 97.5
[2021-08-02 21:26] VITALS: BP 116/64
[2021-08-02 21:28] VITALS: O2SAT 100
== END 2021-08-02 21:14 | disposition home or self-care (01) ==
LOC: ER 17:54
DX: R10.84 Generalized abdominal pain (principal); M25.571 Pain in right ankle and joints of right foot; Z86.718 Personal history of other venous thrombosis and embolism; Z91.041 Radiographic dye allergy status
CPT/HCPCS: 85025; 80048; 36415; 74176; 73630; 73610; 96375; 96374; 99284; J2405